=== PATIENT | male | born 1945 | race Caucasian/White ===

== ENCOUNTER 2017-02-02 07:47 | Emergency (ER) | payer MEDICARE ==
[~2017-02-02] VITALS: Ht 193 cm; Wt 113.6 kg
[2017-02-02] MEDS ORDERED: HYDR25TA PO (08:01)
[2017-02-02] MEDS ORDERED: METO50 PO (08:01)
[2017-02-02 08:42] LABS: INFLUENZA TYPE B NEGATIVE FOR TYPE B (NEGATIVE)
[2017-02-02 11:27] VITALS: BP 127/78
== END 2017-02-02 12:24 | disposition home or self-care (01) ==
LOC: EMS 07:51
DX: J06.9 Acute upper respiratory infection, unspecified (principal); J44.9 Chronic obstructive pulmonary disease, unspecified; J45.909 Unspecified asthma, uncomplicated; I10 Essential (primary) hypertension; Z87.891 Personal history of nicotine dependence
CPT/HCPCS: 71020; 87804; 99285

== ENCOUNTER 2018-05-29 21:28 | Emergency (ER) | payer MEDICARE ==
[~2018-05-29] VITALS: Ht 190.5 cm; Wt 109.1 kg
[~2018-05-29 21:28] MED LIST: HYDR25TA PO; METO50 PO
[2018-05-29] MEDS ORDERED: SERT100T12 PO (21:34)
[2018-05-29 22:45] VITALS: BP 145/82
[2018-05-29] MEDS ORDERED: KETOROLAC TROMETHAMINE 30 MG/ML VIAL IM ONE (22:45)
== END 2018-05-29 23:08 | disposition home or self-care (01) ==
LOC: EMS 21:28
DX: S22.42XA Multiple fractures of ribs, left side, initial encounter for closed fracture (principal); I10 Essential (primary) hypertension; J44.9 Chronic obstructive pulmonary disease, unspecified; Z87.891 Personal history of nicotine dependence; Z98.890 Other specified postprocedural states; Z79.899 Other long term (current) drug therapy; W10.8XXA Fall (on) (from) other stairs and steps, initial encounter; Y93.89 Activity, other specified; Y92.89 Other specified places as the place of occurrence of the external cause; Y99.8 Other external cause status
CPT/HCPCS: 71100; 96372; 99283; J1885

== ENCOUNTER 2018-06-12 19:28 | Inpatient (IN) | payer MEDICARE, MEDICAID ==
[~2018-06-12] VITALS: Ht 190.5 cm; Wt 114.3 kg
[~2018-06-12 19:28] MED LIST changes: +SERT100T12 PO
[2018-06-12 21:48] LABS: BASOPHILS % (AUTO) 0.7 % (0.0-2.0); EOSINOPHILS % (AUTO) 2.5 % (1.0-6.0); HEMATOCRIT 32.7 % (41-53); HEMOGLOBIN 11.7 g/dL (13.5-17.5); LYMPHOCYTES # (AUTO) 2.2 K/uL (1.0-4.8); LYMPHOCYTES % (AUTO) 25.5 % (22.0-44.0); MEAN CORPUSCULAR HEMOGLOBIN 31.1 pg (26.0-34.0); MEAN CORPUSCULAR HGB CONC 35.8 G/dL (31.0-37.0); MEAN CORPUSCULAR VOLUME 87 fL (80-100); MONOCYTES # (AUTO) 0.6 K/uL (0.1-1.0); NEUTROPHILS # (AUTO) 5.5 K/uL (1.8-7.7); NEUTROPHILS % (AUTO) 64.3 % (40.0-70.0); PLATELET COUNT (AUTO) 292 K/uL (150-450); RED BLOOD CELL COUNT(AUTO) 3.77 MIL/uL (4.50-5.90); RED CELL DISTRIBUTION WIDTH 13.7 % (11.5-14.5)
[2018-06-12 22:08] LABS: ANION GAP 13 mmol/L (8-16); CALCIUM, TOTAL 8.8 mg/dL (8.8-10.5); CARBON DIOXIDE 23 mmol/L (22-29); CHLORIDE 102 mmol/L (98-107); CREATININE 0.91 mg/dL (0.60-1.30); GLOMERULAR FILTR. RATE CALC > 60 mL/min (>60); GLUCOSE,RANDOM 131 mg/dL (70-110); POTASSIUM 3.6 mmol/L (3.5-5.1); SODIUM SERUM 138 mmol/L (136-145); UREA NITROGEN, BLOOD 12 mg/dL (7-18)
[2018-06-12 22:14] LABS: ALANINE AMINOTRANSFERASE 17 U/L (12-78); ALBUMIN 3.5 g/dL (3.4-5.0); ALKALINE PHOSPHATASE 137 U/L (46-116); ASPARTATE AMINOTRANSFERASE 16 U/L (15-37); BILIRUBIN,TOTAL 0.9 mg/dL (0.1-1.0); TOTAL PROTEIN, SERUM 7.1 g/dL (6.4-8.2)
[2018-06-12] MEDS ORDERED: SODIUM CHLORIDE 0.9% 100 ML ONE (23:30)
[2018-06-12] MEDS ORDERED: IOVERSOL 350 MG/ML 150 ML VIAL ONE (23:30)
[2018-06-13] MEDS ORDERED: AZITHROMYCIN 500 MG/NS 250 ML IV ONE (01:15)
[2018-06-13] MEDS ORDERED: CefTRIAXone 1 GM/DEXTROSE 50 ML IV ONE (01:15)
[2018-06-13] MEDS ORDERED: MORPHINE SULFATE 4 MG/ML SYRINGE IVP ONE (03:00)
[2018-06-13] MEDS ORDERED: DiphenhydrAMINE HCL 50 MG/ML VIAL IVP ONE (03:00)
[2018-06-13] MEDS ORDERED: ACETAMINOPHEN 325 MG TABLET PO PRN (03:30)
[2018-06-13] MEDS ORDERED: ONDANSETRON HCL 4 MG/2 ML VIAL IVP PRN (03:30)
[2018-06-13] MEDS ORDERED: 0.9% SODIUM CHLORIDE 10 ML SYRINGE IVP PRN (03:30)
[2018-06-13 05:12] VITALS: BP 159/97
[2018-06-13] MEDS ORDERED: ALBUTEROL SULFATE 2.5 MG/0.5 ML NEB SOLUTION NEB SCH (07:00)
[2018-06-13] MEDS ORDERED: IPRATROPIUM BROMIDE 0.5 MG/2.5 ML NEB SOLUTION NEB SCH (07:00)
[2018-06-13 07:47] VITALS: BP 153/79
[2018-06-13] MEDS ORDERED: MAGNESIUM HYDROXIDE SUSPENSION 30 ML UDCUP PO PRN (10:00)
[2018-06-13] MEDS: MORPHINE SULFATE 2 MG/ML SYRINGE IVP PRN ×3 (11:21→22:53)
[2018-06-13 11:35] VITALS: BP 151/95
[2018-06-13] MEDS ORDERED: LIDOCAINE/PF 1% 30 ML VIAL ONE (12:02)
[2018-06-13] MEDS: METOPROLOL TARTRATE 25 MG TABLET PO SCH ×2 (13:35→20:06)
[2018-06-13 15:35] VITALS: BP 156/71
[2018-06-13 17:59] LABS: SPECIMENTYPE,BODY FLUID THORACENTESIS
[2018-06-13 18:24] LABS: BASOPHILS,BODY FLUID 0 %; PH, BODY FLUID 7
[2018-06-13] MEDS: DOCUSATE SODIUM 100 MG CAPSULE PO SCH (20:05)
[2018-06-13 20:07] VITALS: BP 173/84
[2018-06-13] MEDS: ACETAMINOPHEN 325 MG TABLET PO PRN (20:49)
[2018-06-13] MEDS ORDERED: 0.9% SODIUM CHLORIDE 5 ML NEB SOLUTION NEB ONE (22:59)
[2018-06-13] MEDS ORDERED: BACLOFEN 10 MG TABLET PO ONE (23:00)
[2018-06-13] MEDS: ALBUTEROL SULFATE 2.5 MG/0.5 ML NEB SOLUTION NEB PRN (23:04)
[2018-06-14] MEDS ORDERED: VANCOMYCIN HCL 1.5 GM in DEXTROSE 5%-WATER 250 ML IV ONE ×2
[2018-06-14] MEDS ORDERED: SODIUM CHLORIDE 0.9% 100 ML ONE (00:08)
[2018-06-14 00:10] VITALS: BP 159/86
[2018-06-14] MEDS: MORPHINE SULFATE 2 MG/ML SYRINGE IVP PRN ×4 (04:29→20:35)
[2018-06-14] MEDS ORDERED: IPRA4AER IH (04:36)
[2018-06-14] MEDS: ACETAMINOPHEN 325 MG TABLET PO PRN (06:38)
[2018-06-14 06:46] LABS: BASOPHILS % (AUTO) 1.1 % (0.0-2.0); EOSINOPHILS % (AUTO) 3.1 % (1.0-6.0); HEMATOCRIT 31.8 % (41-53); HEMOGLOBIN 11.2 g/dL (13.5-17.5); LYMPHOCYTES # (AUTO) 1.3 K/uL (1.0-4.8); LYMPHOCYTES % (AUTO) 19.5 % (22.0-44.0); MEAN CORPUSCULAR HEMOGLOBIN 30.7 pg (26.0-34.0); MEAN CORPUSCULAR VOLUME 88 fL (80-100); MONOCYTES # (AUTO) 0.5 K/uL (0.1-1.0); MONOCYTES % (AUTO) 7.1 % (2.0-9.0); NEUTROPHILS # (AUTO) 4.6 K/uL (1.8-7.7); NEUTROPHILS % (AUTO) 69.2 % (40.0-70.0); PLATELET COUNT (AUTO) 258 K/uL (150-450); RED BLOOD CELL COUNT(AUTO) 3.64 MIL/uL (4.50-5.90)
[2018-06-14 07:02] LABS: ALANINE AMINOTRANSFERASE 13 U/L (12-78); ALBUMIN 3.2 g/dL (3.4-5.0); ALKALINE PHOSPHATASE 134 U/L (46-116); ANION GAP 11 mmol/L (8-16); ASPARTATE AMINOTRANSFERASE 12 U/L (15-37); BILIRUBIN,TOTAL 1.2 mg/dL (0.1-1.0); CALCIUM, TOTAL 8.9 mg/dL (8.8-10.5); CARBON DIOXIDE 26 mmol/L (22-29); CHLORIDE 104 mmol/L (98-107); CREATININE 0.73 mg/dL (0.60-1.30); GLUCOSE,RANDOM 128 mg/dL (70-110); POTASSIUM 3.5 mmol/L (3.5-5.1); SODIUM SERUM 141 mmol/L (136-145); TOTAL PROTEIN, SERUM 6.7 g/dL (6.4-8.2)
[2018-06-14 07:11] LABS: GLOMERULAR FILTR. RATE CALC > 60 mL/min (>60)
[2018-06-14 07:31] LABS: UREA NITROGEN, BLOOD 13 mg/dL (7-18)
[2018-06-14 07:45] VITALS: BP 156/86
[2018-06-14] MEDS: METOPROLOL TARTRATE 25 MG TABLET PO SCH ×2 (08:37→20:30)
[2018-06-14] MEDS: DOCUSATE SODIUM 100 MG CAPSULE PO SCH ×2 (08:37→20:30)
[2018-06-14] MEDS: FAMOTIDINE 20 MG TABLET PO SCH (08:37)
[2018-06-14] MEDS: VANCOMYCIN HCL 1.5 GM in DEXTROSE 5%-WATER 250 ML IV SCH ×2 (08:42→20:34)
[2018-06-14] MEDS ORDERED: POTASSIUM CHLORIDE 20 MEQ ER TABLET PO ONE (11:30)
[2018-06-14 11:41] VITALS: BP 160/81
[2018-06-14] MEDS: SERTRALINE HCL 100 MG TABLET PO SCH (12:46)
[2018-06-14] MEDS ORDERED: 0.9% SODIUM CHLORIDE 5 ML NEB SOLUTION NEB ONE ×2 (13:35→20:06)
[2018-06-14 15:32] VITALS: BP 149/84
[2018-06-14 20:03] VITALS: BP 152/71
[2018-06-14] MEDS: ALBUTEROL SULFATE 2.5 MG/0.5 ML NEB SOLUTION NEB PRN (20:15)
[2018-06-15] VITALS (7 sets, daily range): BP systolic 140–172; BP diastolic 74–103
[2018-06-15] MEDS: MORPHINE SULFATE 2 MG/ML SYRINGE IVP PRN ×3 (02:22→14:30)
[2018-06-15] MEDS ORDERED: 0.9% SODIUM CHLORIDE 5 ML NEB SOLUTION NEB ONE ×2 (02:51→16:14)
[2018-06-15] MEDS: ALBUTEROL SULFATE 2.5 MG/0.5 ML NEB SOLUTION NEB PRN ×2 (02:53→16:20)
[2018-06-15 06:28] LABS: HEMATOCRIT 31.1 % (41-53); HEMOGLOBIN 10.8 g/dL (13.5-17.5); MEAN CORPUSCULAR HEMOGLOBIN 30.6 pg (26.0-34.0); MEAN CORPUSCULAR HGB CONC 34.8 G/dL (31.0-37.0); MEAN CORPUSCULAR VOLUME 88 fL (80-100); PLATELET COUNT (AUTO) 254 K/uL (150-450); RED BLOOD CELL COUNT(AUTO) 3.54 MIL/uL (4.50-5.90); RED CELL DISTRIBUTION WIDTH 13.6 % (11.5-14.5)
[2018-06-15 06:41] LABS: ANION GAP 10 mmol/L (8-16); CALCIUM, TOTAL 8.9 mg/dL (8.8-10.5); CARBON DIOXIDE 27 mmol/L (22-29); CHLORIDE 105 mmol/L (98-107); CREATININE 0.85 mg/dL (0.60-1.30); GLUCOSE,RANDOM 172 mg/dL (70-110); POTASSIUM 3.4 mmol/L (3.5-5.1); SODIUM SERUM 142 mmol/L (136-145); UREA NITROGEN, BLOOD 14 mg/dL (7-18); VANCOMYCIN,RANDOM 14.5 mcg/mL (25.0-50.0)
[2018-06-15 06:44] LABS: GLOMERULAR FILTR. RATE CALC > 60 mL/min (>60)
[2018-06-15] MEDS: DOCUSATE SODIUM 100 MG CAPSULE PO SCH ×2 (08:13→20:21)
[2018-06-15] MEDS: FAMOTIDINE 20 MG TABLET PO SCH (08:13)
[2018-06-15] MEDS: SERTRALINE HCL 100 MG TABLET PO SCH (08:13)
[2018-06-15] MEDS: METOPROLOL TARTRATE 25 MG TABLET PO SCH ×2 (08:13→20:21)
[2018-06-15] MEDS: VANCOMYCIN HCL 1.5 GM in DEXTROSE 5%-WATER 250 ML IV SCH (09:21)
[2018-06-15 09:43] LABS: BAND NEUTROPHILS % (MANUAL) 1 % (0-5); EOSINOPHILS % (MANUAL) 2 % (1-6); LYMPHOCYTES % (MANUAL) 18 % (22-44); MONOCYTES % (MANUAL) 2 % (2-9); SEGMENTED NEUTROPHILS % 77 % (40-70)
[2018-06-15] MEDS ORDERED: POTASSIUM CHLORIDE 20 MEQ ER TABLET PO ONE (10:45)
[2018-06-15] MEDS: AmLODIPine BESYLATE 10 MG TABLET PO SCH (12:36)
[2018-06-15] MEDS: VANCOMYCIN HCL 1 GM/D5% WATER 200 ML IV SCH ×2 (14:30→23:20)
[2018-06-16] MEDS: MORPHINE SULFATE 2 MG/ML SYRINGE IVP PRN ×4 (00:35→23:02)
[2018-06-16] MEDS: ALBUTEROL SULFATE 2.5 MG/0.5 ML NEB SOLUTION NEB PRN ×4 (00:50→20:17)
[2018-06-16] MEDS ORDERED: 0.9% SODIUM CHLORIDE 5 ML NEB SOLUTION NEB ONE ×4 (00:52→20:04)
[2018-06-16] MEDS: ACETAMINOPHEN 325 MG TABLET PO PRN (03:23)
[2018-06-16 05:56] VITALS: BP 149/74
[2018-06-16 06:13] LABS: ANION GAP 10 mmol/L (8-16); CALCIUM, TOTAL 9.2 mg/dL (8.8-10.5); CARBON DIOXIDE 27 mmol/L (22-29); CHLORIDE 103 mmol/L (98-107); CREATININE 0.72 mg/dL (0.60-1.30); GLOMERULAR FILTR. RATE CALC > 60 mL/min (>60); GLUCOSE,RANDOM 130 mg/dL (70-110); POTASSIUM 3.6 mmol/L (3.5-5.1); SODIUM SERUM 140 mmol/L (136-145); UREA NITROGEN, BLOOD 15 mg/dL (7-18)
[2018-06-16] MEDS: VANCOMYCIN HCL 1 GM/D5% WATER 200 ML IV SCH ×3 (06:46→23:03)
[2018-06-16 08:16] VITALS: BP 119/73
[2018-06-16] MEDS: METOPROLOL TARTRATE 25 MG TABLET PO SCH ×2 (08:45→20:13)
[2018-06-16] MEDS: SERTRALINE HCL 100 MG TABLET PO SCH (08:45)
[2018-06-16] MEDS: FAMOTIDINE 20 MG TABLET PO SCH (08:45)
[2018-06-16] MEDS: AmLODIPine BESYLATE 10 MG TABLET PO SCH (08:45)
[2018-06-16] MEDS: DOCUSATE SODIUM 100 MG CAPSULE PO SCH ×2 (08:45→20:13)
[2018-06-16 11:50] VITALS: BP 143/79
[2018-06-16 13:51] LABS: APPEARANCE,SPUN,BODY FLUID BLOODY (CLEAR)
[2018-06-16 13:52] LABS: COLOR,BODY FLUID RED (LT YELLOW); TOTAL VOLUME,BODY FLUID 810 mL
[2018-06-16 13:55] LABS: WBC, BODY FLUID 8437 /cu. mm.
[2018-06-16 14:00] LABS: NEUTROPHILS,BODY FLUID 47 %; OTHER CELLS,BODY FLUID MESOTHELIALS
[2018-06-16 14:05] LABS: LYMPHOCYTES,BODY FLUID 31 %
[2018-06-16 14:06] LABS: EOSINOPHILS,BF (ANAL) 2 %; MONOCYTES,BODY FLUID 4 %
[2018-06-16 14:07] LABS: APPEARANCE,UNSPUN,BODY FLUID BLOODY (CLEAR)
[2018-06-16] MEDS: BACLOFEN 10 MG TABLET PO PRN ×2 (14:31→23:02)
[2018-06-16 16:00] VITALS: BP 141/59
[2018-06-16 16:53] LABS: LACTATE DEHYDROGENASE 327 U/L (85-227)
[2018-06-16 20:00] VITALS: BP 164/98
[2018-06-16] MEDS ORDERED: SODIUM CHLORIDE 0.9% 250 ML IV ONE (22:57)
[2018-06-17 00:39] VITALS: BP 151/69
[2018-06-17 04:00] VITALS: BP 145/75
[2018-06-17] MEDS: ACETAMINOPHEN 325 MG TABLET PO PRN (04:41)
[2018-06-17] MEDS ORDERED: 0.9% SODIUM CHLORIDE 5 ML NEB SOLUTION NEB ONE ×3 (05:12→23:23)
[2018-06-17] MEDS: ALBUTEROL SULFATE 2.5 MG/0.5 ML NEB SOLUTION NEB PRN ×3 (05:19→23:25)
[2018-06-17] MEDS: VANCOMYCIN HCL 1 GM/D5% WATER 200 ML IV SCH ×3 (06:41→23:00)
[2018-06-17 07:05] LABS: ANION GAP 10 mmol/L (8-16); CARBON DIOXIDE 26 mmol/L (22-29); CHLORIDE 105 mmol/L (98-107); CREATININE 0.72 mg/dL (0.60-1.30); GLUCOSE,RANDOM 132 mg/dL (70-110); POTASSIUM 3.6 mmol/L (3.5-5.1); SODIUM SERUM 141 mmol/L (136-145); UREA NITROGEN, BLOOD 15 mg/dL (7-18)
[2018-06-17 07:10] LABS: GLOMERULAR FILTR. RATE CALC > 60 mL/min (>60)
[2018-06-17] MEDS: AmLODIPine BESYLATE 10 MG TABLET PO SCH (08:12)
[2018-06-17] MEDS: DOCUSATE SODIUM 100 MG CAPSULE PO SCH ×2 (08:12→21:01)
[2018-06-17] MEDS: FAMOTIDINE 20 MG TABLET PO SCH (08:12)
[2018-06-17] MEDS: SERTRALINE HCL 100 MG TABLET PO SCH (08:12)
[2018-06-17] MEDS: METOPROLOL TARTRATE 25 MG TABLET PO SCH ×2 (08:13→21:01)
[2018-06-17 08:20] VITALS: BP 174/85
[2018-06-17] MEDS: BACLOFEN 10 MG TABLET PO PRN ×2 (09:06→21:02)
[2018-06-17 11:39] VITALS: BP 145/67
[2018-06-17] MEDS: MORPHINE SULFATE 2 MG/ML SYRINGE IVP PRN ×2 (13:09→23:10)
[2018-06-17 15:56] VITALS: BP 157/62
[2018-06-17 20:39] VITALS: BP 155/89
[2018-06-18 00:25] VITALS: BP 157/81
[2018-06-18] MEDS: MORPHINE SULFATE 2 MG/ML SYRINGE IVP PRN (04:37)
[2018-06-18 04:42] VITALS: BP 159/86
[2018-06-18 06:07] LABS: ANION GAP 11 mmol/L (8-16); CARBON DIOXIDE 26 mmol/L (22-29); CHLORIDE 102 mmol/L (98-107); CREATININE 0.74 mg/dL (0.60-1.30); GLOMERULAR FILTR. RATE CALC > 60 mL/min (>60); GLUCOSE,RANDOM 121 mg/dL (70-110); POTASSIUM 3.8 mmol/L (3.5-5.1); SODIUM SERUM 139 mmol/L (136-145); UREA NITROGEN, BLOOD 13 mg/dL (7-18)
[2018-06-18] MEDS: VANCOMYCIN HCL 1 GM/D5% WATER 200 ML IV SCH (06:18)
[2018-06-18 07:20] VITALS: BP 140/61
[2018-06-18] MEDS ORDERED: 0.9% SODIUM CHLORIDE 5 ML NEB SOLUTION NEB ONE (08:15)
[2018-06-18] MEDS: ALBUTEROL SULFATE 2.5 MG/0.5 ML NEB SOLUTION NEB PRN (08:19)
[2018-06-18] MEDS: DOCUSATE SODIUM 100 MG CAPSULE PO SCH (09:00)
[2018-06-18] MEDS: SERTRALINE HCL 100 MG TABLET PO SCH (09:04)
[2018-06-18] MEDS: AmLODIPine BESYLATE 10 MG TABLET PO SCH (09:04)
[2018-06-18] MEDS: FAMOTIDINE 20 MG TABLET PO SCH (09:04)
[2018-06-18] MEDS: METOPROLOL TARTRATE 25 MG TABLET PO SCH (09:04)
[2018-06-18] MEDS ORDERED: LEVO500 PO (11:08)
[2018-06-22 16:56] LABS: MTB NUCL.ACID AMPLIF W/O AFBCS Negative (Negative)
== END 2018-06-18 12:00 | disposition home or self-care (01) | DRG 194 ==
LOC: EMS 19:29 → 5S 06-13 01:30 → 5N 06-14 15:47
PROVIDERS: ADMIT Internal Medicine; ATTEND Internal Medicine
PROC: 0W9B3ZZ Drainage of Left Pleural Cavity, Percutaneous Approach (ICD-10-PCS; principal; 2018-06-13)
DX: J18.9 Pneumonia, unspecified organism (principal); S22.42XA Multiple fractures of ribs, left side, initial encounter for closed fracture; J44.0 Chronic obstructive pulmonary disease with (acute) lower respiratory infection; J91.8 Pleural effusion in other conditions classified elsewhere; D71 Functional disorders of polymorphonuclear neutrophils; I10 Essential (primary) hypertension; E66.9 Obesity, unspecified; E87.6 Hypokalemia; I45.10 Unspecified right bundle-branch block; T50.905A Adverse effect of unspecified drugs, medicaments and biological substances, initial encounter; R58 Hemorrhage, not elsewhere classified; L29.9 Pruritus, unspecified; Z77.090 Contact with and (suspected) exposure to asbestos; Z87.891 Personal history of nicotine dependence; Z88.5 Allergy status to narcotic agent; Z68.31 Body mass index [BMI] 31.0-31.9, adult; W18.39XA Other fall on same level, initial encounter; Y93.89 Activity, other specified; Y92.89 Other specified places as the place of occurrence of the external cause; Y99.8 Other external cause status
CPT/HCPCS: 32555; 71260; 72193; 74160; 76942; 82465; 82945; 83615; 83986; 84157; 85007; 86850; 86900; 86901; 87015; 87040; 87070; 87101; 87205; 87206; 87556; 88108; 88312; 89051; 93005; 93306; 94640; 96365; 96368; 96375; G0378; J0456; J0696; J1200; J2270; J3370; J3490; J7050; J7060

== ENCOUNTER 2018-07-18 12:19 | Emergency (ER) | payer MEDICARE, MEDICAID ==
[~2018-07-18] VITALS: Ht 190.5 cm; Wt 110.5 kg
[~2018-07-18 12:19] MED LIST changes: -HYDR25TA PO; +IPRA4AER IH; +LEVO500 PO
[2018-07-18 13:12] LABS: BASOPHILS % (AUTO) 0.9 % (0.0-2.0); EOSINOPHILS % (AUTO) 1.5 % (1.0-6.0); HEMATOCRIT 38.6 % (41-53); HEMOGLOBIN 13.3 g/dL (13.5-17.5); LYMPHOCYTES # (AUTO) 1.5 K/uL (1.0-4.8); LYMPHOCYTES % (AUTO) 19.5 % (22.0-44.0); MEAN CORPUSCULAR HGB CONC 34.4 G/dL (31.0-37.0); MEAN CORPUSCULAR VOLUME 87 fL (80-100); MONOCYTES # (AUTO) 0.6 K/uL (0.1-1.0); MONOCYTES % (AUTO) 8.3 % (2.0-9.0); NEUTROPHILS # (AUTO) 5.3 K/uL (1.8-7.7); NEUTROPHILS % (AUTO) 69.8 % (40.0-70.0); PLATELET COUNT (AUTO) 234 K/uL (150-450); RED BLOOD CELL COUNT(AUTO) 4.43 MIL/uL (4.50-5.90); RED CELL DISTRIBUTION WIDTH 13.8 % (11.5-14.5)
[2018-07-18 13:23] LABS: ANION GAP 10 mmol/L (8-16); CALCIUM, TOTAL 8.8 mg/dL (8.8-10.5); CARBON DIOXIDE 27 mmol/L (22-29); CHLORIDE 104 mmol/L (98-107); CREATININE 1.07 mg/dL (0.60-1.30); GLUCOSE,RANDOM 145 mg/dL (70-110); POTASSIUM 3.4 mmol/L (3.5-5.1); SODIUM SERUM 141 mmol/L (136-145); UREA NITROGEN, BLOOD 14 mg/dL (7-18)
[2018-07-18 13:30] LABS: ALANINE AMINOTRANSFERASE 14 U/L (12-78); ALBUMIN 3.4 g/dL (3.4-5.0); ALKALINE PHOSPHATASE 108 U/L (46-116); BILIRUBIN,TOTAL 0.9 mg/dL (0.1-1.0); LIPASE 89 U/L (73-393); TOTAL PROTEIN, SERUM 7.1 g/dL (6.4-8.2)
[2018-07-18 13:32] LABS: LACTIC ACID 0.6 mmol/L (0.4-2.0)
[2018-07-18 13:34] LABS: GLOMERULAR FILTR. RATE CALC > 60 mL/min (>60)
[2018-07-18 13:36] LABS: B-TYPE NATRIURETIC PEPTIDE 540 pg/mL (0-100)
[2018-07-18 13:55] LABS: ASPARTATE AMINOTRANSFERASE 14 U/L (15-37)
[2018-07-18 17:00] LABS: INR 0.9 (0.9-1.1); PROTHROMBIN TIME 9.9 SEC (9.4-11.6)
[2018-07-18 19:01] VITALS: BP 154/70
[2018-07-18 19:53] LABS: SPECIMENTYPE,BODY FLUID THORACENTESIS
[2018-07-18 20:59] LABS: APPEARANCE,UNSPUN,BODY FLUID CLOUDY (CLEAR); COLOR,BODY FLUID BROWN (LT YELLOW); TOTAL VOLUME,BODY FLUID 1800 mL
[2018-07-18 21:00] LABS: WBC, BODY FLUID 389 /cu. mm.
[2018-07-18 21:10] LABS: APPEARANCE,SPUN,BODY FLUID XANTHOCHROMIC (CLEAR)
[2018-07-18 21:32] LABS: BASOPHILS,BODY FLUID 0 %; EOSINOPHILS,BF (ANAL) 0 %; LYMPHOCYTES,BODY FLUID 13 %; MONOCYTES,BODY FLUID 2 %; NEUTROPHILS,BODY FLUID 85 %
[2018-07-18 21:33] LABS: PH, BODY FLUID 7
== END 2018-07-18 19:02 | disposition home or self-care (01) ==
LOC: EMS 12:20
DX: J90 Pleural effusion, not elsewhere classified (principal); R91.1 Solitary pulmonary nodule; I10 Essential (primary) hypertension; J44.9 Chronic obstructive pulmonary disease, unspecified; Z79.899 Other long term (current) drug therapy; Z87.891 Personal history of nicotine dependence; Z88.8 Allergy status to other drugs, medicaments and biological substances; Z98.890 Other specified postprocedural states
CPT/HCPCS: 32550; 36415; 71045; 71046; 71250; 76942; 80053; 82465; 82945; 83605; 83615; 83690; 83880; 83986; 84157; 84484; 85025; 85610; 85730; 87015; 87040; 87070; 87101; 87206; 88108; 89051; 93005; 99285; G0480

== ENCOUNTER → 2018-11-24 | Outpatient (CLI) | payer MEDICARE, MEDICAID ==
[~2018-11-24] MED LIST changes: +ATOR40TA28 PO; +DIPH-706 PO; +FENO160T41 PO; +HYDR25TA PO; +IPRA3AMP24 NEB; -LEVO500 PO; +LISI-662 PO
== END | disposition home or self-care (01) ==
LOC: RESP 10:09
PROVIDERS: ATTEND Internal Medicine
DX: J44.9 Chronic obstructive pulmonary disease, unspecified (principal)
CPT/HCPCS: 94010; 94726; 94727; 94729

== ENCOUNTER → 2018-12-30 | Outpatient (CLI) | payer MEDICARE, MEDICAID | END | disposition home or self-care (01) | LOC: RADPV 13:35 | PROVIDERS: ATTEND Internal Medicine | DX: J44.9 Chronic obstructive pulmonary disease, unspecified (principal); J90 Pleural effusion, not elsewhere classified ==

== ENCOUNTER 2019-04-21 09:51 | Emergency (ER) | payer MEDICARE, MEDICAID ==
[~2019-04-21] VITALS: Ht 190.5 cm; Wt 111.4 kg
[~2019-04-21 09:51] MED LIST changes: +HYDR-1475 PO; -HYDR25TA PO
[2019-04-21 11:00] VITALS: BP 148/79
[2019-04-21] MEDS ORDERED: LIDOCAINE 5% TRANSDERMAL PATCH TD ONE (11:45)
[2019-04-21] MEDS ORDERED: IBUPROFEN 400 MG TABLET PO ONE (11:45)
== END 2019-04-21 12:04 | disposition home or self-care (01) ==
LOC: EMS 09:52
DX: S22.32XA Fracture of one rib, left side, initial encounter for closed fracture (principal); I10 Essential (primary) hypertension; J44.9 Chronic obstructive pulmonary disease, unspecified; Z87.891 Personal history of nicotine dependence; Z79.899 Other long term (current) drug therapy; Z88.5 Allergy status to narcotic agent; Z98.890 Other specified postprocedural states; X50.9XXA Other and unspecified overexertion or strenuous movements or postures, initial encounter; Y93.89 Activity, other specified; Y92.89 Other specified places as the place of occurrence of the external cause; Y99.8 Other external cause status
CPT/HCPCS: 71101; 99406

== ENCOUNTER 2020-03-15 13:18 | Emergency (ER) | payer MEDICARE, MEDICAID ==
[~2020-03-15] VITALS: Ht 188 cm; Wt 109.1 kg
[2020-03-15] MEDS ORDERED: HYDROCHLOROTHIAZIDE 25 MG TABLET PO ONE (15:15)
[2020-03-15 15:49] LABS: BASOPHILS % (AUTO) 0.9 % (0.0-2.0); EOSINOPHILS % (AUTO) 2.2 % (1.0-6.0); HEMATOCRIT 40.9 % (41-53); HEMOGLOBIN 14.6 g/dL (13.5-17.5); LYMPHOCYTES # (AUTO) 1.7 K/uL (1.0-4.8); LYMPHOCYTES % (AUTO) 23.8 % (22.0-44.0); MEAN CORPUSCULAR HEMOGLOBIN 31.5 pg (26.0-34.0); MEAN CORPUSCULAR HGB CONC 35.7 G/dL (31.0-37.0); MEAN CORPUSCULAR VOLUME 88 fL (80-100); MONOCYTES # (AUTO) 0.5 K/uL (0.1-1.0); MONOCYTES % (AUTO) 7.1 % (2.0-9.0); NEUTROPHILS # (AUTO) 4.6 K/uL (1.8-7.7); PLATELET COUNT (AUTO) 198 K/uL (150-450); RED BLOOD CELL COUNT(AUTO) 4.64 MIL/uL (4.50-5.90); RED CELL DISTRIBUTION WIDTH 13.6 % (11.5-14.5)
[2020-03-15 16:19] LABS: ALBUMIN 3.8 g/dL (3.4-5.0); ALKALINE PHOSPHATASE 106 U/L (46-116); ANION GAP 11 mmol/L (8-16); BILIRUBIN,TOTAL 1.4 mg/dL (0.1-1.0); CALCIUM, TOTAL 8.4 mg/dL (8.8-10.5); CARBON DIOXIDE 28 mmol/L (22-29); CHLORIDE 110 mmol/L (98-107); GLUCOSE,RANDOM 158 mg/dL (70-110); POTASSIUM 3.7 mmol/L (3.5-5.1); SODIUM SERUM 149 mmol/L (136-145); UREA NITROGEN, BLOOD 17 mg/dL (7-18)
[2020-03-15 16:50] LABS: TOTAL PROTEIN, SERUM 7.8 g/dL (6.4-8.2)
[2020-03-15 16:51] LABS: CREATININE 0.89 mg/dL (0.60-1.30); GLOMERULAR FILTR. RATE CALC > 60 mL/min (>60)
[2020-03-15 17:33] LABS: ALANINE AMINOTRANSFERASE 24 U/L (12-78); ASPARTATE AMINOTRANSFERASE 22 U/L (15-37)
[2020-03-15 18:43] LABS: APPEARANCE,URINE CLEAR (CLEAR); BILIRUBIN,URINE NEGATIVE (NEGATIVE); GLUCOSE, URINE (UA) NEGATIVE (NEGATIVE); KETONES,URINE NEGATIVE (NEGATIVE); LEUKOCYTE ESTERASE ,URINE NEGATIVE (NEGATIVE); NITRATE,URINE NEGATIVE (NEGATIVE); OCCULT BLOOD,URINE NEGATIVE (NEGATIVE); PH,URINE 6.5 (5.0-8.0); PROTEIN,URINE TRACE (NEGATIVE); UROBILINOGEN,URINE 0.2 mg/dL (<=1.0)
[2020-03-15 18:54] LABS: BACTERIA,URINE None Seen /HPF (None Seen); RBC,URINE None Seen /HPF (0-2); WBC,URINE None Seen /HPF (0-5)
[2020-03-15 18:55] LABS: SQUAMOUS EPITHELIAL CELL,UR Rare /LPF (None Seen)
[2020-03-15 19:26] VITALS: BP 186/95
== END 2020-03-15 19:30 | disposition home or self-care (01) ==
LOC: EMS 13:22
DX: I10 Essential (primary) hypertension (principal); F17.210 Nicotine dependence, cigarettes, uncomplicated; Z91.14 Patient's other noncompliance with medication regimen
CPT/HCPCS: 93005

== ENCOUNTER 2022-01-27 09:40 | Emergency (ER) | payer MEDICARE, MEDICAID ==
[~2022-01-27] VITALS: Ht 190.5 cm; Wt 106.8 kg
[~2022-01-27 09:40] MED LIST changes: -FENO160T41 PO; +FENO160T75 PO; -HYDR-1475 PO; +HYDR25TA2 PO; -LISI-662 PO; +LISI-894 PO; +SERT-162 PO; -SERT100T12 PO
[2022-01-27 10:10] LABS: COVID AG,FIA SOURCE NASAL SWAB
[2022-01-27 10:43] LABS: INFLUENZA TYPE A NEGATIVE FOR TYPE A (NEGATIVE); INFLUENZA TYPE B NEGATIVE FOR TYPE B (NEGATIVE)
[2022-01-27] MEDS ORDERED: AMOX1TAB16 PO (11:42)
[2022-01-27] MEDS ORDERED: AZIT250T9 PO (11:42)
[2022-01-27 12:00] VITALS: BP 146/89
[2022-01-27] MEDS ORDERED: ALBU8HFA IH (12:04)
[2022-01-27] MEDS ORDERED: IPRA4AER IH (12:04)
== END 2022-01-27 12:20 | disposition home or self-care (01) ==
LOC: EMS 09:42
DX: J18.9 Pneumonia, unspecified organism (principal); Z20.822 Contact with and (suspected) exposure to COVID-19; E78.5 Hyperlipidemia, unspecified; E78.00 Pure hypercholesterolemia, unspecified; F32.9 Major depressive disorder, single episode, unspecified; J44.9 Chronic obstructive pulmonary disease, unspecified; I10 Essential (primary) hypertension; R53.81 Other malaise; Z88.5 Allergy status to narcotic agent
CPT/HCPCS: 71045; 87804; 99284

== ENCOUNTER 2023-05-13 06:38 | Inpatient (IN) | payer MEDICARE, MEDICAID ==
[~2023-05-13] VITALS: Ht 190.5 cm; Wt 116.1 kg
[~2023-05-13 06:38] MED LIST changes: +ALBU18HF12 IH; +AMOX1TAB16 PO
[2023-05-13 07:19] LABS: EOSINOPHILS % (AUTO) 4.5 % (1.0-6.0); HEMATOCRIT 30.6 % (41-53); HEMOGLOBIN 10.2 g/dL (13.5-17.5); LYMPHOCYTES # (AUTO) 0.9 K/uL (1.0-4.8); LYMPHOCYTES % (AUTO) 19.4 % (22.0-44.0); MEAN CORPUSCULAR HEMOGLOBIN 30.5 pg (26.0-34.0); MEAN CORPUSCULAR HGB CONC 33.3 G/dL (31.0-37.0); MEAN CORPUSCULAR VOLUME 91 fL (80-100); MONOCYTES # (AUTO) 0.5 K/uL (0.1-1.0); MONOCYTES % (AUTO) 11.3 % (2.0-9.0); NEUTROPHILS # (AUTO) 2.9 K/uL (1.8-7.7); NEUTROPHILS % (AUTO) 63.8 % (40.0-70.0); PLATELET COUNT (AUTO) 210 K/uL (150-450); RED BLOOD CELL COUNT(AUTO) 3.35 MIL/uL (4.50-5.90); WHITE BLOOD COUNT (AUTO) 4.5 K/uL (4.5-11.0)
[2023-05-13 07:32] LABS: LACTIC ACID 1.1 mmol/L (0.4-2.0); TROPONIN I-HIGH SENSITIVITY 33 ng/L (<76)
[2023-05-13] MEDS: DILTIAZEM HCL 5 MG/ML 5 ML VIAL IVP ONE (07:32)
[2023-05-13 07:34] LABS: ANION GAP 12 mmol/L (8-16); CALCIUM, TOTAL 9.1 mg/dL (8.8-10.5); CARBON DIOXIDE 21 mmol/L (22-29); CHLORIDE 105 mmol/L (98-107); CREATININE 2.28 mg/dL (0.60-1.30); GLOMERULAR FILTR. RATE CALC 28 mL/min (>60); GLUCOSE,RANDOM 93 mg/dL (70-110); POTASSIUM 3.7 mmol/L (3.5-5.1); SODIUM SERUM 138 mmol/L (136-145); UREA NITROGEN, BLOOD 39 mg/dL (7-18)
[2023-05-13] MEDS: MethylPREDNISolone SOD SUCC 125 MG/2 ML VIAL IVP ONE (07:36)
[2023-05-13 07:38] LABS: ALANINE AMINOTRANSFERASE 15 U/L (12-78); ALBUMIN 2.5 g/dL (3.4-5.0); ALKALINE PHOSPHATASE 142 U/L (46-116); ASPARTATE AMINOTRANSFERASE 24 U/L (15-37); BILIRUBIN,TOTAL 1.3 mg/dL (0.1-1.0); LIPASE 28 U/L (16-77); TOTAL PROTEIN, SERUM 6.5 g/dL (6.4-8.2)
[2023-05-13] MEDS: FUROSEMIDE 40 MG/4 ML VIAL IVP ONE (07:38)
[2023-05-13] MEDS: ASPIRIN 325 MG TABLET PO ONE (07:40)
[2023-05-13] MEDS: OXYGEN THERAPY IH SCH (07:43)
[2023-05-13] MEDS: DIGOXIN 250 MCG/ML 2 ML AMP IVP ONE (07:43)
[2023-05-13 07:51] LABS: B-TYPE NATRIURETIC PEPTIDE 1050 pg/mL (0-100)
[2023-05-13 08:37] LABS: APPEARANCE,URINE CLEAR (CLEAR); BILIRUBIN,URINE NEGATIVE (NEGATIVE); COLOR,URINE LIGHT YELLOW (YELLOW); GLUCOSE, URINE (UA) NEGATIVE (NEGATIVE); KETONES,URINE NEGATIVE (NEGATIVE); LEUKOCYTE ESTERASE ,URINE NEGATIVE (NEGATIVE); NITRATE,URINE NEGATIVE (NEGATIVE); OCCULT BLOOD,URINE SMALL (NEGATIVE); PROTEIN,URINE NEGATIVE (NEGATIVE); SPECIFIC GRAVITIY, URINE 1.009 (1.003-1.030); UROBILINOGEN,URINE <=1.0 mg/dL (<=1.0)
[2023-05-13 08:45] LABS: ALCOHOL, URINE DRUG SCREEN NEGATIVE (NEGATIVE); AMPHET/METH SCREEN,URINE NEGATIVE (NEGATIVE); BARBITURATE SCREEN, URINE NEGATIVE (NEGATIVE); BENZODIAZEPINES SCREEN,URINE NEGATIVE (NEGATIVE); CANNABINOID SCREEN,URINE NEGATIVE (NEGATIVE); COCAINE SCREEN,URINE NEGATIVE (NEGATIVE); METHADONE SCREEN, URINE NEGATIVE (NEGATIVE); OPIATE SCREEN,URINE NEGATIVE (NEGATIVE); PHENCYCLIDINE SCREEN,URINE NEGATIVE (NEGATIVE)
[2023-05-13 08:53] LABS: BACTERIA,URINE None Seen /HPF (None Seen); WBC,URINE None Seen /HPF (0-5)
[2023-05-13 09:17] LABS: INFLUENZA A-RTPCR,COMBO NEGATIVE (NEGATIVE); INFLUENZA B-RTPCR,COMBO NEGATIVE (NEGATIVE); RESPIRATORY SYNCYTIAL VRS-PCR NEGATIVE (NEGATIVE); SARS COVID19 RTPCR, COMBO NEGATIVE (NEGATIVE)
[2023-05-13 11:53] VITALS: BP 158/101; PULSE 120; RESP 20; TEMP 97.6
[2023-05-13] MEDS: METOPROLOL TARTRATE 50 MG TABLET PO SCH (12:28)
[2023-05-13 16:02] VITALS: BP 146/86; PULSE 100; RESP 18; TEMP 97.3
[2023-05-13] MEDS ORDERED: ONDANSETRON HCL 4 MG/2 ML VIAL IVP PRN (18:00)
[2023-05-13] MEDS ORDERED: BISACODYL 10 MG RECTAL RECTAL SUPPOSITORY PR PRN (18:00)
[2023-05-13] MEDS ORDERED: ZOLPIDEM TARTRATE 5 MG TABLET PO PRN (18:00)
[2023-05-13] MEDS ORDERED: MAGNESIUM HYDROXIDE SUSPENSION 30 ML UDCUP PO PRN (18:00)
[2023-05-13] MEDS ORDERED: ALBU18HF12 IH (18:26)
[2023-05-13] MEDS ORDERED: ASPI-1451 PO (18:26)
[2023-05-13] MEDS ORDERED: METO-408 PO (18:26)
[2023-05-13] MEDS ORDERED: SODIUM CHLORIDE 0.9% 500 ML IV ONE (19:52)
[2023-05-13 20:00] VITALS: BP 146/82; PULSE 94; RESP 18; TEMP 97.9
[2023-05-13] MEDS: ATORVASTATIN CALCIUM 40 MG TABLET PO SCH (20:01)
[2023-05-13] MEDS: CeFAZolin 1 GM/DEXTROSE 50 ML IV SCH (20:01)
[2023-05-13] MEDS: FUROSEMIDE 40 MG/4 ML VIAL IVP SCH (20:02)
[2023-05-13] MEDS: ALBUTEROL SULFATE 2.5 MG/0.5 ML NEB SOLUTION NEB SCH (21:00)
[2023-05-13] MEDS: IPRATROPIUM BROMIDE 0.5 MG/2.5 ML NEB SOLUTION NEB SCH (21:00)
[2023-05-13] MEDS: HEPARIN SODIUM,PORCINE 5,000 UNITS/ML VIAL SQ SCH (23:21)
[2023-05-13 23:25] VITALS: BP 145/84; PULSE 104; RESP 18; TEMP 97.6
[2023-05-14] VITALS (11 sets, daily range): BP systolic 111–147; BP diastolic 62–85; PULSE 64–106; RESP 18–24; TEMP 97.6–98.1; O2SAT 93–95
[2023-05-14 07:30] LABS: BASOPHILS % (AUTO) 0.2 % (0.0-2.0); EOSINOPHILS % (AUTO) 0 % (1.0-6.0); HEMATOCRIT 29.8 % (41-53); HEMOGLOBIN 10.3 g/dL (13.5-17.5); LYMPHOCYTES # (AUTO) 0.6 K/uL (1.0-4.8); LYMPHOCYTES % (AUTO) 9.1 % (22.0-44.0); MEAN CORPUSCULAR HEMOGLOBIN 31.2 pg (26.0-34.0); MEAN CORPUSCULAR HGB CONC 34.4 G/dL (31.0-37.0); MEAN CORPUSCULAR VOLUME 91 fL (80-100); MONOCYTES # (AUTO) 0.3 K/uL (0.1-1.0); NEUTROPHILS # (AUTO) 5.9 K/uL (1.8-7.7); PLATELET COUNT (AUTO) 233 K/uL (150-450); RED BLOOD CELL COUNT(AUTO) 3.29 MIL/uL (4.50-5.90); RED CELL DISTRIBUTION WIDTH 15.7 % (11.5-14.5); WHITE BLOOD COUNT (AUTO) 6.9 K/uL (4.5-11.0)
[2023-05-14 07:37] LABS: NEUTROPHILS % (AUTO) 85.7 % (40.0-70.0)
[2023-05-14 08:01] LABS: CALCIUM, TOTAL 8.7 mg/dL (8.8-10.5); CREATININE 2.28 mg/dL (0.60-1.30); POTASSIUM 3.5 mmol/L (3.5-5.1)
[2023-05-14 08:06] LABS: TROPONIN I-HIGH SENSITIVITY 21 ng/L (<76)
[2023-05-14] MEDS: FENOFIBRATE 160 MG TABLET PO SCH (08:23)
[2023-05-14] MEDS: ASPIRIN 81 MG DR TABLET PO SCH (08:24)
[2023-05-14] MEDS: SERTRALINE HCL 100 MG TABLET PO SCH (08:24)
[2023-05-14] MEDS: PANTOPRAZOLE SODIUM 40 MG DR TABLET PO SCH (08:24)
[2023-05-14 08:30] LABS: THYROID STIMULATING HORMONE 3.85 uIU/mL (0.36-3.74)
[2023-05-14] MEDS: CefTRIAXone SODIUM 2 GM in DEXTROSE 5%-WATER 50 ML IV SCH (16:05)
[2023-05-14] MEDS: DOXYCYCLINE HYCLATE 100 MG in DEXTROSE 5%-WATER 100 ML IV SCH (17:17)
[2023-05-14] MEDS: METOPROLOL SUCCINATE 50 MG ER TABLET PO SCH (21:06)
[2023-05-14] MEDS: APIXABAN 2.5 MG TABLET PO SCH (21:07)
[2023-05-15] VITALS (9 sets, daily range): BP systolic 132–159; BP diastolic 81–100; PULSE 72–110; RESP 14–20; TEMP 96.9–98.4; O2SAT 94–98
[2023-05-15 08:03] LABS: CALCIUM, TOTAL 8.6 mg/dL (8.8-10.5); CREATININE 2.04 mg/dL (0.60-1.30); MAGNESIUM 1.2 mg/dL (1.80-2.40); PHOSPHORUS 4.3 mg/dL (2.5-4.9)
[2023-05-15] MEDS ORDERED: MAGNESIUM OXIDE 400 MG TABLET PO PRN (08:30)
[2023-05-15] MEDS ORDERED: MAGNESIUM SULFATE 4 GM/WATER 100 ML IV PRN (08:30)
[2023-05-15] MEDS ORDERED: MAGNESIUM SULFATE 2 GM/WATER 50 ML IV PRN (08:30)
[2023-05-15] MEDS: POTASSIUM CHLORIDE 20 MEQ ER TABLET PO ONE (09:19)
[2023-05-15] MEDS: POTASSIUM CHL 10 MEQ/WATER 50 ML IV SCH (09:19)
[2023-05-15 09:25] LABS: ALBUMIN 2.3 g/dL (3.4-5.0)
[2023-05-15] MEDS: MAGNESIUM SULFATE 2 GM/WATER 50 ML IV ONE (15:13)
[2023-05-15 17:31] LABS: CALCIUM, TOTAL 8.5 mg/dL (8.8-10.5); CREATININE 2.07 mg/dL (0.60-1.30); MAGNESIUM 1.2 mg/dL (1.80-2.40); PHOSPHORUS 4.1 mg/dL (2.5-4.9); POTASSIUM 3.4 mmol/L (3.5-5.1)
[2023-05-15 17:36] LABS: CREATININE,URINE 12.6 mg/dL (30.0-125.0)
[2023-05-15 17:37] LABS: CREATININE,SERUM FOR CRCL 2.04 mg/dL (0.60-1.30)
[2023-05-15] MEDS: BENZOCAINE/MENTHOL LOZENGE PO PRN (20:59)
[2023-05-16] VITALS (11 sets, daily range): BP systolic 117–150; BP diastolic 68–92; PULSE 75–116; RESP 18–22; TEMP 98–98.4; O2SAT 95–96
[2023-05-16] MEDS: ACETAMINOPHEN 325 MG TABLET PO PRN (05:45)
[2023-05-16 07:11] LABS: CALCIUM, TOTAL 8.2 mg/dL (8.8-10.5); CREATININE 1.98 mg/dL (0.60-1.30); PHOSPHORUS 3.8 mg/dL (2.5-4.9); POTASSIUM 3.3 mmol/L (3.5-5.1)
[2023-05-16] MEDS: LOSARTAN POTASSIUM 25 MG TABLET PO SCH (08:22)
[2023-05-16 08:39] LABS: MAGNESIUM 1.2 mg/dL (1.80-2.40)
[2023-05-16] MEDS: POTASSIUM CHL 10 MEQ/WATER 50 ML IV SCH (11:10)
[2023-05-16] MEDS: FUROSEMIDE 40 MG TABLET PO SCH (11:17)
[2023-05-16] MEDS: MAGNESIUM SULFATE 3 GM in DEXTROSE 5%-WATER 100 ML IV ONE (16:20)
[2023-05-16] MEDS: POTASSIUM CHLORIDE 20 MEQ ER TABLET PO ONE (16:34)
[2023-05-17] VITALS (14 sets, daily range): BP systolic 104–126; BP diastolic 56–86; PULSE 79–111; RESP 16–20; TEMP 97.9–99.1; O2SAT 93–99
[2023-05-17] MEDS: ALBUTEROL SULFATE 2.5 MG/0.5 ML NEB SOLUTION NEB PRN (04:31)
[2023-05-17] MEDS: IPRATROPIUM BROMIDE 0.5 MG/2.5 ML NEB SOLUTION NEB PRN (04:31)
[2023-05-17 08:08] LABS: CALCIUM, TOTAL 7.8 mg/dL (8.8-10.5); CREATININE 1.79 mg/dL (0.60-1.30); MAGNESIUM 1.4 mg/dL (1.80-2.40); POTASSIUM 3.4 mmol/L (3.5-5.1)
[2023-05-17] MEDS: POTASSIUM CHLORIDE 20 MEQ ER TABLET PO ONE (10:42)
[2023-05-17] MEDS: MAGNESIUM SULFATE 3 GM in DEXTROSE 5%-WATER 100 ML IV ONE (12:24)
[2023-05-18] VITALS (12 sets, daily range): BP systolic 93–127; BP diastolic 54–84; PULSE 79–102; RESP 16–20; TEMP 97.8–98.2; O2SAT 96–99
[2023-05-18] MEDS: TAMSULOSIN HCL 0.4 MG CAPSULE PO SCH (17:18)
[2023-05-19] VITALS (13 sets, daily range): BP systolic 119–144; BP diastolic 60–85; PULSE 93–115; RESP 18–20; TEMP 97.7–98.7; O2SAT 93–100
[2023-05-19 07:45] LABS: CALCIUM, TOTAL 7.9 mg/dL (8.8-10.5); CREATININE 1.85 mg/dL (0.60-1.30); POTASSIUM 3.8 mmol/L (3.5-5.1)
[2023-05-19] MEDS ORDERED: TAMS0.4C94 PO (11:08)
[2023-05-19] MEDS ORDERED: APIX2.5T PO (11:08)
[2023-05-19] MEDS ORDERED: FURO40 PO (11:08)
[2023-05-19] MEDS ORDERED: FENO160T75 PO (11:08)
[2023-05-19] MEDS ORDERED: CEPACLZ PO (11:08)
[2023-05-19] MEDS ORDERED: PANT-31 PO (11:08)
[2023-05-19] MEDS ORDERED: LOSA-417 PO (11:08)
[2023-05-19] MEDS ORDERED: METO-391 PO (11:08)
[2023-05-19] MEDS ORDERED: SODIUM CHLORIDE 0.9% 500 ML IV ONE (19:32)
[2023-05-20] VITALS (13 sets, daily range): BP systolic 121–125; BP diastolic 67–85; PULSE 94–107; RESP 18–20; TEMP 97.5–99.3; O2SAT 93–100
[2023-05-20] MEDS ORDERED: SODIUM CHLORIDE 0.9% 250 ML IV ONE (01:59)
[2023-05-20] MEDS: FUROSEMIDE 40 MG TABLET PO SCH (10:25)
[2023-05-21 03:47] VITALS: BP 131/93; PULSE 89; RESP 18; TEMP 97.8
[2023-05-21 08:05] VITALS: BP 135/86; PULSE 82; RESP 20; TEMP 98.5
[2023-05-21 08:23] VITALS: PULSE 84; RESP 18; O2SAT 96
[2023-05-21 08:36] VITALS: PULSE 87; RESP 18; O2SAT 99
== END 2023-05-21 13:00 | DRG 291 ==
LOC: EMS 06:39 → 5S 10:23 → 6N 05-19 23:23
PROVIDERS: ADMIT Hospitalist; ATTEND Hospitalist
DX: I13.0 Hypertensive heart and chronic kidney disease with heart failure and stage 1 through stage 4 chronic kidney disease, or unspecified chronic kidney disease (principal); I50.23 Acute on chronic systolic (congestive) heart failure; J18.9 Pneumonia, unspecified organism; S22.42XA Multiple fractures of ribs, left side, initial encounter for closed fracture; N17.9 Acute kidney failure, unspecified; J44.0 Chronic obstructive pulmonary disease with (acute) lower respiratory infection; E87.3 Alkalosis; E44.0 Moderate protein-calorie malnutrition; I48.20 Chronic atrial fibrillation, unspecified; L03.115 Cellulitis of right lower limb; L03.116 Cellulitis of left lower limb; N18.4 Chronic kidney disease, stage 4 (severe); I42.9 Cardiomyopathy, unspecified; Z20.822 Contact with and (suspected) exposure to COVID-19; D64.9 Anemia, unspecified; R09.02 Hypoxemia; E83.42 Hypomagnesemia; E87.6 Hypokalemia; N32.0 Bladder-neck obstruction; M79.89 Other specified soft tissue disorders; F32.A Depression, unspecified; R09.89 Other specified symptoms and signs involving the circulatory and respiratory systems; R33.8 Other retention of urine; I27.20 Pulmonary hypertension, unspecified; N40.1 Benign prostatic hyperplasia with lower urinary tract symptoms; R13.10 Dysphagia, unspecified; N50.89 Other specified disorders of the male genital organs; Z79.82 Long term (current) use of aspirin; Z88.8 Allergy status to other drugs, medicaments and biological substances; Z79.899 Other long term (current) drug therapy; Z87.891 Personal history of nicotine dependence; X58.XXXA Exposure to other specified factors, initial encounter; Y93.89 Activity, other specified; Y92.89 Other specified places as the place of occurrence of the external cause; Y99.8 Other external cause status
CPT/HCPCS: 0241U; 70450; 71045; 71250; 76770; 80048; 80053; 80307; 81001; 81050; 82040; 82575; 83605; 83690; 83735; 83880; 84100; 84132; 84156; 84300; 84443; 84484; 85025; 87040; 92526; 92610; 93005; 93306; 93970; 94640; 97116; 97162; 97530; 99285; J0690; J0696; J1160; J1644; J1940; J2930; J3475; J3480; J3490; J7040; J7050; J7060; 36415-L1; 36415-TC; J7613

== ENCOUNTER 2023-08-17 17:23 | Emergency (ER) | payer MEDICARE, MEDICAID ==
[~2023-08-17] VITALS: Ht 182.9 cm; Wt 81.8 kg
[~2023-08-17 17:23] MED LIST changes: -AMOX1TAB16 PO; +APIX2.5T PO; +ASPI-1451 PO; +CEPACLZ PO; -DIPH-706 PO; +FURO40 PO; -HYDR25TA2 PO; -IPRA3AMP24 NEB; -LISI-894 PO; +LOSA-417 PO; +METO-391 PO; -METO50 PO; +PANT-31 PO; +TAMS0.4C94 PO
[2023-08-17 17:49] VITALS: TEMP 97.8
[2023-08-17 18:32] LABS: HEMATOCRIT 37.3 % (41-53); HEMOGLOBIN 12.2 g/dL (13.5-17.5); MEAN CORPUSCULAR HEMOGLOBIN 28.6 pg (26.0-34.0); MEAN CORPUSCULAR HGB CONC 32.7 G/dL (31.0-37.0); MEAN CORPUSCULAR VOLUME 87 fL (80-100); NEUTROPHILS % (AUTO) 59.7 % (40.0-70.0); PLATELET COUNT (AUTO) 220 K/uL (150-450); RED BLOOD CELL COUNT(AUTO) 4.27 MIL/uL (4.50-5.90); RED CELL DISTRIBUTION WIDTH 17.1 % (11.5-14.5); WHITE BLOOD COUNT (AUTO) 5.7 K/uL (4.5-11.0)
[2023-08-17 18:33] LABS: BASOPHILS % (AUTO) 1.1 % (0.0-2.0); EOSINOPHILS % (AUTO) 3.1 % (1.0-6.0); LYMPHOCYTES # (AUTO) 1.6 K/uL (1.0-4.8); LYMPHOCYTES % (AUTO) 27.9 % (22.0-44.0); MONOCYTES # (AUTO) 0.5 K/uL (0.1-1.0); MONOCYTES % (AUTO) 8.2 % (2.0-9.0); NEUTROPHILS # (AUTO) 3.4 K/uL (1.8-7.7)
[2023-08-17] MEDS: FUROSEMIDE 40 MG/4 ML VIAL IVP ONE (18:34)
[2023-08-17 18:39] LABS: CREATININE 1.47 mg/dL (0.60-1.30); POTASSIUM 3.6 mmol/L (3.5-5.1)
[2023-08-17 18:49] LABS: TROPONIN I-HIGH SENSITIVITY 16 ng/L (<76)
[2023-08-17 22:29] VITALS: BP 133/87; PULSE 89; RESP 18
== END 2023-08-18 02:29 | disposition home or self-care (01) ==
LOC: EMS 17:23
DX: R60.0 Localized edema (principal); I11.0 Hypertensive heart disease with heart failure; I50.9 Heart failure, unspecified; J44.9 Chronic obstructive pulmonary disease, unspecified; F17.210 Nicotine dependence, cigarettes, uncomplicated; Z88.5 Allergy status to narcotic agent
CPT/HCPCS: 99284; 96374; 80048; 83880; 84484; 85025; 36415; 93005; J1940

== ENCOUNTER 2023-09-12 14:06 | Emergency (ER) | payer MEDICARE, MEDICAID ==
[~2023-09-12] VITALS: Ht 190.5 cm; Wt 95.5 kg
[~2023-09-12 14:06] MED LIST changes: -ALBU18HF12 IH; -APIX2.5T PO; -ASPI-1451 PO; -ATOR40TA28 PO; -CEPACLZ PO; -FENO160T75 PO; -IPRA4AER IH; -LOSA-417 PO; -METO-391 PO; -PANT-31 PO; -SERT-162 PO; -TAMS0.4C94 PO
[2023-09-12 16:14] LABS: BASOPHILS % (AUTO) 0.6 % (0.0-2.0); EOSINOPHILS % (AUTO) 2.5 % (1.0-6.0); HEMATOCRIT 35.1 % (41-53); HEMOGLOBIN 11.3 g/dL (13.5-17.5); LYMPHOCYTES # (AUTO) 1.3 K/uL (1.0-4.8); LYMPHOCYTES % (AUTO) 26.2 % (22.0-44.0); MEAN CORPUSCULAR HGB CONC 32.1 G/dL (31.0-37.0); MEAN CORPUSCULAR VOLUME 87 fL (80-100); MONOCYTES # (AUTO) 0.6 K/uL (0.1-1.0); MONOCYTES % (AUTO) 12.2 % (2.0-9.0); NEUTROPHILS # (AUTO) 2.9 K/uL (1.8-7.7); NEUTROPHILS % (AUTO) 58.5 % (40.0-70.0); PLATELET COUNT (AUTO) 147 K/uL (150-450); RED BLOOD CELL COUNT(AUTO) 4.02 MIL/uL (4.50-5.90); RED CELL DISTRIBUTION WIDTH 16.9 % (11.5-14.5)
[2023-09-12 16:24] LABS: CALCIUM, TOTAL 8.6 mg/dL (8.8-10.5); CREATININE 1.23 mg/dL (0.60-1.30); POTASSIUM 3.3 mmol/L (3.5-5.1)
[2023-09-12 16:33] LABS: TROPONIN I-HIGH SENSITIVITY 13 ng/L (<76)
[2023-09-12] MEDS: KETOROLAC TROMETHAMINE 60 MG/2 ML VIAL IM ONE (16:34)
[2023-09-12 17:13] LABS: APPEARANCE,URINE HAZY (CLEAR); BILIRUBIN,URINE NEGATIVE (NEGATIVE); COLOR,URINE LIGHT YELLOW (YELLOW); GLUCOSE, URINE (UA) NEGATIVE (NEGATIVE); KETONES,URINE NEGATIVE (NEGATIVE); LEUKOCYTE ESTERASE ,URINE LARGE (NEGATIVE); NITRATE,URINE NEGATIVE (NEGATIVE); OCCULT BLOOD,URINE MODERATE (NEGATIVE); PROTEIN,URINE 100-200,SEE CONFIRM mg/dL (NEGATIVE); SPECIFIC GRAVITIY, URINE 1.012 (1.003-1.030); UROBILINOGEN,URINE <=1.0 mg/dL (<=1.0)
[2023-09-12 17:46] LABS: BACTERIA,URINE Few /HPF (None Seen); SQUAMOUS EPITHELIAL CELL,UR None Seen /LPF (None Seen); SULFOSALICYLIC ACID,URINE 1+ (Negative); WBC,URINE 26-50 /HPF (0-5)
[2023-09-12] MEDS ORDERED: METO-325 PO (19:05)
[2023-09-12] MEDS ORDERED: APIX2.5T PO (19:05)
[2023-09-12] MEDS ORDERED: TAMS0.4C94 PO (19:05)
[2023-09-12] MEDS ORDERED: LOSA-381 PO (19:05)
[2023-09-12] MEDS ORDERED: POTA8TAB71 PO (19:05)
[2023-09-12] MEDS ORDERED: CIPR250T6 PO (19:05)
[2023-09-12] MEDS ORDERED: FURO40 PO (19:05)
[2023-09-12] MEDS: POTASSIUM CHLORIDE 20 MEQ ER TABLET PO ONE (19:40)
[2023-09-12 20:30] VITALS: BP 134/77; PULSE 75; RESP 18; TEMP 98.3
== END 2023-09-12 22:26 | disposition home or self-care (01) ==
LOC: EMS 14:08
DX: N32.0 Bladder-neck obstruction (principal); E44.0 Moderate protein-calorie malnutrition; E87.6 Hypokalemia; N39.0 Urinary tract infection, site not specified; J45.909 Unspecified asthma, uncomplicated; J44.9 Chronic obstructive pulmonary disease, unspecified; F32.A Depression, unspecified; E78.00 Pure hypercholesterolemia, unspecified; I11.0 Hypertensive heart disease with heart failure; I50.9 Heart failure, unspecified; F17.210 Nicotine dependence, cigarettes, uncomplicated; F10.90 Alcohol use, unspecified, uncomplicated; Z91.148 Patient's other noncompliance with medication regimen for other reason; Z91.119 Patient's noncompliance with dietary regimen due to unspecified reason; Z98.890 Other specified postprocedural states; Y90.9 Presence of alcohol in blood, level not specified
CPT/HCPCS: 99284; 80048; 81001; 84484; 85025; 36415; 87086; 87186; 51702; 96372; J1885; 81002

== ENCOUNTER 2023-10-15 12:12 | Emergency (ER) | payer MEDICARE, MEDICAID ==
[~2023-10-15] VITALS: Ht 185.4 cm; Wt 77.3 kg
[~2023-10-15 12:12] MED LIST changes: +APIX2.5T PO; +CIPR250T6 PO; +LOSA-381 PO; +METO-325 PO; +POTA8TAB71 PO; +TAMS0.4C94 PO
[2023-10-15 12:19] VITALS: TEMP 97.9
[2023-10-15] MEDS: KETOROLAC TROMETHAMINE 30 MG/ML VIAL IM ONE (16:49)
[2023-10-15 17:12] VITALS: BP 160/106; PULSE 89; RESP 18
== END 2023-10-15 17:20 | disposition home or self-care (01) ==
LOC: EMS 12:12
DX: R33.9 Retention of urine, unspecified (principal); J44.9 Chronic obstructive pulmonary disease, unspecified; F32.A Depression, unspecified; E78.00 Pure hypercholesterolemia, unspecified; I11.0 Hypertensive heart disease with heart failure; I50.9 Heart failure, unspecified; F10.90 Alcohol use, unspecified, uncomplicated; Z87.891 Personal history of nicotine dependence; Z88.8 Allergy status to other drugs, medicaments and biological substances; Y90.9 Presence of alcohol in blood, level not specified
CPT/HCPCS: 99283; 96372; J1885

== ENCOUNTER 2023-12-27 12:11 | Emergency (ER) | payer MEDICARE, MEDICAID ==
[~2023-12-27] VITALS: Ht 190.5 cm; Wt 81.0 kg
[~2023-12-27 12:11] MED LIST changes: -FURO40 PO; +FURO40TA6 PO; +PERM60CR4 TP
[2023-12-27 12:26] VITALS: TEMP 98.3
[2023-12-27 12:44] LABS: APPEARANCE,URINE CLEAR (CLEAR); BILIRUBIN,URINE NEGATIVE (NEGATIVE); COLOR,URINE COLORLESS (YELLOW); GLUCOSE, URINE (UA) NEGATIVE (NEGATIVE); KETONES,URINE NEGATIVE (NEGATIVE); LEUKOCYTE ESTERASE ,URINE MODERATE (NEGATIVE); NITRATE,URINE NEGATIVE (NEGATIVE); OCCULT BLOOD,URINE NEGATIVE (NEGATIVE); PROTEIN,URINE NEGATIVE (NEGATIVE); SPECIFIC GRAVITIY, URINE 1.007 (1.003-1.030); UROBILINOGEN,URINE <=1.0 mg/dL (<=1.0)
[2023-12-27] MEDS: KETOROLAC TROMETHAMINE 30 MG/ML VIAL IM ONE (13:00)
[2023-12-27 13:02] LABS: BACTERIA,URINE Few /HPF (None Seen); RBC,URINE None Seen /HPF (0-2); SQUAMOUS EPITHELIAL CELL,UR Few /LPF (None Seen)
[2023-12-27] MEDS ORDERED: LEVO750T68 PO (13:17)
[2023-12-27] MEDS: LEVOFLOXACIN 250 MG TABLET PO ONE (13:32)
[2023-12-27 13:50] VITALS: BP 132/69; PULSE 77; RESP 16; O2SAT 98
== END 2023-12-27 13:51 | disposition home or self-care (01) ==
LOC: EMS 12:11
DX: N39.0 Urinary tract infection, site not specified (principal); J44.9 Chronic obstructive pulmonary disease, unspecified; E78.00 Pure hypercholesterolemia, unspecified; I10 Essential (primary) hypertension; Z98.890 Other specified postprocedural states; Z88.5 Allergy status to narcotic agent
CPT/HCPCS: 99283; 81001; 87077; 87086; 87186; 96372; J1885

== ENCOUNTER 2024-04-16 13:33 | Emergency (ER) | payer MEDICARE, MEDICAID ==
[~2024-04-16 13:33] MED LIST changes: +LEVO750T68 PO
== END 2024-04-16 13:50 | disposition left against medical advice (07) ==
LOC: EMS 13:38
DX: Z53.21 Procedure and treatment not carried out due to patient leaving prior to being seen by health care provider (principal)

== ENCOUNTER 2024-07-14 21:31 | Inpatient (IN) | payer MEDICARE, MEDICAID ==
[~2024-07-14] VITALS: Ht 188 cm; Wt 88.9 kg
[~2024-07-14 21:31] MED LIST changes: +ALBU18HF12 IH; -APIX2.5T PO; +APIX5TAB PO; -CIPR250T6 PO; +FURO20TA4 PO; -FURO40TA6 PO; +HYDR-4527 PO; -LEVO750T68 PO; -LOSA-381 PO; +LOSA-417 PO; -METO-325 PO; +METO-391 PO; -PERM60CR4 TP; -POTA8TAB71 PO; +SERT-440 PO; +SPIR-37 PO
[2024-07-15 01:29] LABS: BASOPHILS % (AUTO) 1.2 % (0.0-2.0); HEMATOCRIT 38.2 % (41-53); HEMOGLOBIN 12.8 g/dL (13.5-17.5); LYMPHOCYTES # (AUTO) 1.2 K/uL (1.0-4.8); LYMPHOCYTES % (AUTO) 25.3 % (22.0-44.0); MEAN CORPUSCULAR HGB CONC 33.6 G/dL (31.0-37.0); MEAN CORPUSCULAR VOLUME 86 fL (80-100); MONOCYTES # (AUTO) 0.4 K/uL (0.1-1.0); NEUTROPHILS % (AUTO) 61.5 % (40.0-70.0); PLATELET COUNT (AUTO) 127 K/uL (150-450); RED BLOOD CELL COUNT(AUTO) 4.42 MIL/uL (4.50-5.90); RED CELL DISTRIBUTION WIDTH 15.4 % (11.5-14.5); WHITE BLOOD COUNT (AUTO) 4.8 K/uL (4.5-11.0)
[2024-07-15 01:37] LABS: ANION GAP 4 mmol/L (8-16); CALCIUM, TOTAL 8.7 mg/dL (8.8-10.5); CARBON DIOXIDE 32 mmol/L (22-29); CHLORIDE 102 mmol/L (98-107); CREATININE 1.05 mg/dL (0.60-1.30); GLOMERULAR FILTR. RATE CALC > 60 mL/min (>60); GLUCOSE,RANDOM 96 mg/dL (70-110); POTASSIUM 3.9 mmol/L (3.5-5.1); SODIUM SERUM 138 mmol/L (136-145); UREA NITROGEN, BLOOD 18 mg/dL (7-18)
[2024-07-15] MEDS: LIDOCAINE 2% 6 ML JELLY TP ONE (05:39)
[2024-07-15 05:42] LABS: COVID AG,FIA SOURCE NASAL SWAB
[2024-07-15] MEDS ORDERED: METOPROLOL SUCCINATE 50 MG ER TABLET PO ONE (05:45)
[2024-07-15 06:13] LABS: SARS-COV2 (COVID) ANTIGEN,FIA Negative (Negative)
[2024-07-15] MEDS: METOPROLOL SUCCINATE 25 MG ER TABLET PO ONE (06:36)
[2024-07-15] MEDS ORDERED: ACETAMINOPHEN 325 MG TABLET PO PRN (08:30)
[2024-07-15] MEDS ORDERED: MAGNESIUM HYDROXIDE SUSPENSION 30 ML UDCUP PO PRN (08:30)
[2024-07-15] MEDS ORDERED: ONDANSETRON HCL 4 MG/2 ML VIAL IVP PRN (08:30)
[2024-07-15 09:02] LABS: APPEARANCE,URINE HAZY (CLEAR); BILIRUBIN,URINE NEGATIVE (NEGATIVE); COLOR,URINE LIGHT YELLOW (YELLOW); GLUCOSE, URINE (UA) NEGATIVE (NEGATIVE); KETONES,URINE NEGATIVE (NEGATIVE); LEUKOCYTE ESTERASE ,URINE LARGE (NEGATIVE); NITRATE,URINE POSITIVE (NEGATIVE); OCCULT BLOOD,URINE TRACE (NEGATIVE); PROTEIN,URINE 100-200,SEE CONFIRM mg/dL (NEGATIVE); SPECIFIC GRAVITIY, URINE 1.007 (1.003-1.030); UROBILINOGEN,URINE <=1.0 mg/dL (<=1.0)
[2024-07-15 09:09] LABS: AMPHET/METH SCREEN,URINE NEGATIVE (NEGATIVE); BARBITURATE SCREEN, URINE NEGATIVE (NEGATIVE); BENZODIAZEPINES SCREEN,URINE NEGATIVE (NEGATIVE); CANNABINOID SCREEN,URINE NEGATIVE (NEGATIVE); COCAINE SCREEN,URINE NEGATIVE (NEGATIVE); METHADONE SCREEN, URINE NEGATIVE (NEGATIVE); OPIATE SCREEN,URINE NEGATIVE (NEGATIVE); PHENCYCLIDINE SCREEN,URINE NEGATIVE (NEGATIVE)
[2024-07-15 09:14] LABS: ALCOHOL, URINE DRUG SCREEN NEGATIVE (NEGATIVE); BACTERIA,URINE Moderate /HPF (None Seen); RBC,URINE 0-2 /HPF (0-2); SULFOSALICYLIC ACID,URINE 2+ (Negative)
[2024-07-15] MEDS: FAMOTIDINE 20 MG TABLET PO SCH (10:16)
[2024-07-15] MEDS: APIXABAN 5 MG TABLET PO SCH (10:17)
[2024-07-15] MEDS: SPIRONOLACTONE 25 MG TABLET PO SCH (10:17)
[2024-07-15] MEDS: METOPROLOL SUCCINATE 25 MG ER TABLET PO SCH (10:17)
[2024-07-15] MEDS: FUROSEMIDE 20 MG TABLET PO SCH (10:17)
[2024-07-15] MEDS: DOCUSATE SODIUM 100 MG CAPSULE PO SCH (10:17)
[2024-07-15] MEDS: lisinopriL 10 MG TABLET PO SCH (10:17)
[2024-07-15 17:45] VITALS: BP 152/102; PULSE 80; RESP 17; TEMP 98.4; O2SAT 99
[2024-07-15 20:13] VITALS: BP 155/94; PULSE 90; RESP 18; TEMP 97.5; O2SAT 99
[2024-07-15] MEDS: ATORVASTATIN CALCIUM 20 MG TABLET PO SCH (20:32)
[2024-07-15] MEDS: TAMSULOSIN HCL 0.4 MG CAPSULE PO SCH (20:35)
[2024-07-15] MEDS ORDERED: 0.9% SODIUM CHLORIDE 5 ML NEB SOLUTION NEB ONE (21:31)
[2024-07-15 21:34] VITALS: PULSE 88; RESP 18; O2SAT 99
[2024-07-15] MEDS: ALBUTEROL SULFATE 2.5 MG/0.5 ML NEB SOLUTION NEB PRN (21:34)
[2024-07-15 21:49] VITALS: PULSE 81; RESP 18; O2SAT 100
[2024-07-16] VITALS (7 sets, daily range): BP systolic 134–159; BP diastolic 87–107; PULSE 67–100; RESP 18–19; TEMP 97.5–98.5; O2SAT 95–99
[2024-07-16] MEDS ORDERED: SODIUM CHLORIDE 0.9% 500 ML IV ONE (12:44)
[2024-07-16] MEDS: SERTRALINE HCL 50 MG TABLET PO SCH (12:59)
[2024-07-16] MEDS: CefTRIAXone 1 GM/DEXTROSE 50 ML IV SCH (13:00)
[2024-07-16] MEDS ORDERED: 0.9% SODIUM CHLORIDE 5 ML NEB SOLUTION NEB ONE (19:50)
[2024-07-17] VITALS: BP 150/95; PULSE 85; RESP 19; TEMP 98.1; O2SAT 96
[2024-07-17 08:02] VITALS: BP 148/89; PULSE 80; RESP 19; TEMP 98.5; O2SAT 98
[2024-07-17 10:30] VITALS: PULSE 74; RESP 16; O2SAT 97
[2024-07-17 12:17] VITALS: BP 142/83; PULSE 86; RESP 19; TEMP 97.8; O2SAT 100
[2024-07-17 16:01] VITALS: BP 144/107; PULSE 76; RESP 19; TEMP 98; O2SAT 100
[2024-07-17 19:34] VITALS: BP 140/86; PULSE 76; RESP 18; TEMP 97.5; O2SAT 97
[2024-07-18] VITALS (10 sets, daily range): BP systolic 144–171; BP diastolic 81–104; PULSE 65–90; RESP 18–20; TEMP 97.9–98.4; O2SAT 96–99
[2024-07-18] MEDS ORDERED: CIPR250T6 PO (10:48)
[2024-07-18] MEDS: CIPROFLOXACIN HCL 250 MG TABLET PO SCH (12:00)
[2024-07-18] MEDS: CloNIDine HCL 0.1 MG TABLET PO PRN (21:09)
[2024-07-19] VITALS (7 sets, daily range): BP systolic 120–158; BP diastolic 72–99; PULSE 63–100; RESP 18–20; TEMP 97.7–98.2; O2SAT 95–100
[2024-07-20 05:38] VITALS: BP 146/83; PULSE 75; RESP 18; TEMP 97.5; O2SAT 98
[2024-07-20 07:16] VITALS: BP 107/67; PULSE 66; RESP 18; TEMP 97.9; O2SAT 95
[2024-07-20 09:37] LABS: EOSINOPHILS % (AUTO) 5.4 % (1.0-6.0); HEMATOCRIT 37.2 % (41-53); HEMOGLOBIN 12.5 g/dL (13.5-17.5); LYMPHOCYTES # (AUTO) 1.1 K/uL (1.0-4.8); LYMPHOCYTES % (AUTO) 26.9 % (22.0-44.0); MEAN CORPUSCULAR HEMOGLOBIN 29.3 pg (26.0-34.0); MEAN CORPUSCULAR HGB CONC 33.6 G/dL (31.0-37.0); MEAN CORPUSCULAR VOLUME 87 fL (80-100); MONOCYTES # (AUTO) 0.4 K/uL (0.1-1.0); NEUTROPHILS # (AUTO) 2.3 K/uL (1.8-7.7); NEUTROPHILS % (AUTO) 55.7 % (40.0-70.0); PLATELET COUNT (AUTO) 150 K/uL (150-450); RED BLOOD CELL COUNT(AUTO) 4.25 MIL/uL (4.50-5.90); RED CELL DISTRIBUTION WIDTH 16.3 % (11.5-14.5); WHITE BLOOD COUNT (AUTO) 4.1 K/uL (4.5-11.0)
[2024-07-20 09:45] LABS: CALCIUM, TOTAL 8.6 mg/dL (8.8-10.5); CREATININE 1.24 mg/dL (0.60-1.30); POTASSIUM 3.8 mmol/L (3.5-5.1)
[2024-07-20 15:10] VITALS: BP 120/72; PULSE 76; RESP 18; TEMP 98.2; O2SAT 96
[2024-07-20 19:13] VITALS: BP 151/92; PULSE 66; RESP 19; TEMP 98.4; O2SAT 97
[2024-07-21 04:29] VITALS: BP 125/78; PULSE 76; RESP 20; TEMP 98.1; O2SAT 98
[2024-07-21 07:00] VITALS: BP 109/61; PULSE 74; RESP 19; TEMP 97.8; O2SAT 100
[2024-07-21 14:59] VITALS: BP 145/89; PULSE 79; RESP 18; TEMP 98; O2SAT 98
== END 2024-07-21 19:15 | disposition home or self-care (01) | DRG 699 ==
LOC: EMS 21:31 → EDH 07-15 08:41 → UNDOADMIN 07-15 08:41 → 5S 07-15 17:30 → 6S 07-19 16:52
PROVIDERS: ADMIT Internal Medicine; ATTEND Internal Medicine
DX: T83.518A Infection and inflammatory reaction due to other urinary catheter, initial encounter (principal); F33.2 Major depressive disorder, recurrent severe without psychotic features; I50.22 Chronic systolic (congestive) heart failure; R45.851 Suicidal ideations; N39.0 Urinary tract infection, site not specified; Z59.00 Homelessness unspecified; I16.0 Hypertensive urgency; I11.0 Hypertensive heart disease with heart failure; N40.1 Benign prostatic hyperplasia with lower urinary tract symptoms; R33.8 Other retention of urine; I48.0 Paroxysmal atrial fibrillation; I07.1 Rheumatic tricuspid insufficiency; I71.21 Aneurysm of the ascending aorta, without rupture; Z20.822 Contact with and (suspected) exposure to COVID-19; I71.23 Aneurysm of the descending thoracic aorta, without rupture; R41.89 Other symptoms and signs involving cognitive functions and awareness; F41.9 Anxiety disorder, unspecified; J45.909 Unspecified asthma, uncomplicated; Y73.8 Miscellaneous gastroenterology and urology devices associated with adverse incidents, not elsewhere classified; Z88.5 Allergy status to narcotic agent; Z79.899 Other long term (current) drug therapy; Y92.89 Other specified places as the place of occurrence of the external cause
CPT/HCPCS: 80048; 80307; 81001; 81002; 85025; 87077; 87081; 87086; 87186; 93005; 94640; 97163; 99285; G0480; J0696; J7040

== ENCOUNTER 2024-08-02 04:26 | Emergency (ER) | payer MEDICARE, MEDICAID ==
[~2024-08-02] VITALS: Ht 182.9 cm; Wt 95.5 kg
[~2024-08-02 04:26] MED LIST changes: -HYDR-4527 PO
[2024-08-02 04:31] VITALS: BP 142/87; PULSE 82; RESP 16; TEMP 97.8; O2SAT 97
[2024-08-03] MEDS ORDERED: SERT-158 PO (15:54)
== END 2024-08-02 06:18 | disposition home or self-care (01) ==
LOC: EMS 04:49
DX: R41.0 Disorientation, unspecified (principal); F03.90 Unspecified dementia, unspecified severity, without behavioral disturbance, psychotic disturbance, mood disturbance, and anxiety; I11.0 Hypertensive heart disease with heart failure; I50.9 Heart failure, unspecified; J45.909 Unspecified asthma, uncomplicated; I48.91 Unspecified atrial fibrillation; N40.0 Benign prostatic hyperplasia without lower urinary tract symptoms; Z79.01 Long term (current) use of anticoagulants; Z88.5 Allergy status to narcotic agent; Z96.0 Presence of urogenital implants; Z60.2 Problems related to living alone; Z79.899 Other long term (current) drug therapy
CPT/HCPCS: 99283; Z7502

== ENCOUNTER 2024-08-03 05:25 | Inpatient (IN) | payer MEDICARE, MEDICAID ==
[~2024-08-03] VITALS: Ht 188 cm; Wt 81.8 kg
[2024-08-03 07:03] LABS: BASOPHILS % (AUTO) 0.9 % (0.0-2.0); EOSINOPHILS % (AUTO) 1.6 % (1.0-6.0); HEMATOCRIT 40.1 % (41-53); HEMOGLOBIN 13.7 g/dL (13.5-17.5); LYMPHOCYTES # (AUTO) 1.1 K/uL (1.0-4.8); LYMPHOCYTES % (AUTO) 21.7 % (22.0-44.0); MEAN CORPUSCULAR HEMOGLOBIN 29.5 pg (26.0-34.0); MEAN CORPUSCULAR HGB CONC 34.1 G/dL (31.0-37.0); MEAN CORPUSCULAR VOLUME 87 fL (80-100); MONOCYTES # (AUTO) 0.5 K/uL (0.1-1.0); NEUTROPHILS # (AUTO) 3.4 K/uL (1.8-7.7); NEUTROPHILS % (AUTO) 66.8 % (40.0-70.0); PLATELET COUNT (AUTO) 151 K/uL (150-450); RED BLOOD CELL COUNT(AUTO) 4.63 MIL/uL (4.50-5.90); RED CELL DISTRIBUTION WIDTH 16.2 % (11.5-14.5); WHITE BLOOD COUNT (AUTO) 5.1 K/uL (4.5-11.0)
[2024-08-03 07:09] LABS: ANION GAP 5 mmol/L (8-16); CALCIUM, TOTAL 9.2 mg/dL (8.8-10.5); CARBON DIOXIDE 31 mmol/L (22-29); CHLORIDE 104 mmol/L (98-107); CREATININE 1.08 mg/dL (0.60-1.30); GLOMERULAR FILTR. RATE CALC > 60 mL/min (>60); GLUCOSE,RANDOM 107 mg/dL (70-110); POTASSIUM 4.7 mmol/L (3.5-5.1); SODIUM SERUM 140 mmol/L (136-145); UREA NITROGEN, BLOOD 24 mg/dL (7-18)
[2024-08-03 07:16] LABS: ALBUMIN 3.4 g/dL (3.4-5.0); BILIRUBIN,DIRECT 0.3 mg/dL (0.00-0.20); BILIRUBIN,TOTAL 1.3 mg/dL (0.1-1.0); PROTHROMBIN TIME 10.7 SEC (9.4-11.6); TOTAL PROTEIN, SERUM 7.2 g/dL (6.4-8.2)
[2024-08-03 07:19] LABS: TROPONIN I-HIGH SENSITIVITY 18 ng/L (<76)
[2024-08-03 07:40] LABS: APPEARANCE,URINE HAZY (CLEAR); BILIRUBIN,URINE NEGATIVE (NEGATIVE); COLOR,URINE YELLOW (YELLOW); GLUCOSE, URINE (UA) NEGATIVE (NEGATIVE); KETONES,URINE NEGATIVE (NEGATIVE); LEUKOCYTE ESTERASE ,URINE LARGE (NEGATIVE); NITRATE,URINE POSITIVE (NEGATIVE); OCCULT BLOOD,URINE SMALL (NEGATIVE); PROTEIN,URINE 100-200,SEE CONFIRM mg/dL (NEGATIVE); SPECIFIC GRAVITIY, URINE 1.016 (1.003-1.030); UROBILINOGEN,URINE <=1.0 mg/dL (<=1.0)
[2024-08-03 07:50] LABS: SULFOSALICYLIC ACID,URINE 2+ (Negative)
[2024-08-03 07:51] LABS: BACTERIA,URINE Many /HPF (None Seen); WBC,URINE 26-50 /HPF (0-5)
[2024-08-03] MEDS: CefTRIAXone 1 GM/DEXTROSE 50 ML IV ONE (09:25)
[2024-08-03] MEDS: LABETALOL HCL 5 MG/ML 20 ML VIAL IVP ONE (09:25)
[2024-08-03 09:32] LABS: LACTIC ACID 0.6 mmol/L (0.4-2.0)
[2024-08-03] MEDS: CefTRIAXone 1 GM/DEXTROSE 50 ML IV SCH (10:30)
[2024-08-03] MEDS ORDERED: ALBUTEROL SULFATE 2.5 MG/0.5 ML NEB SOLUTION NEB PRN (10:30)
[2024-08-03] MEDS ORDERED: IPRATROPIUM BROMIDE 0.5 MG/2.5 ML NEB SOLUTION NEB PRN (10:30)
[2024-08-03] MEDS: LOSARTAN POTASSIUM 25 MG TABLET PO SCH (10:33)
[2024-08-03] MEDS: AZITHROMYCIN 500 MG/NS 250 ML IV SCH (10:34)
[2024-08-03] MEDS: MethylPREDNISolone SOD SUCC 125 MG/2 ML VIAL IVP SCH (11:14)
[2024-08-03 11:17] VITALS: PULSE 116; RESP 20; O2SAT 97
[2024-08-03 11:32] VITALS: PULSE 124; RESP 26; O2SAT 100
[2024-08-03] MEDS: ALBUTEROL SULFATE 2.5 MG/0.5 ML NEB SOLUTION NEB SCH (14:17)
[2024-08-03] MEDS: IPRATROPIUM BROMIDE 0.5 MG/2.5 ML NEB SOLUTION NEB SCH (14:17)
[2024-08-03 15:10] VITALS: BP 170/98; PULSE 132; RESP 20; TEMP 98.6; O2SAT 94
[2024-08-03] MEDS ORDERED: SERT-158 PO (15:54)
[2024-08-03] MEDS: BENZONATATE 100 MG CAPSULE PO SCH (17:34)
[2024-08-03 20:00] VITALS: BP 155/96; PULSE 101; RESP 19; TEMP 97.9; O2SAT 98
[2024-08-03] MEDS: TAMSULOSIN HCL 0.4 MG CAPSULE PO SCH (21:21)
[2024-08-03] MEDS: APIXABAN 5 MG TABLET PO SCH (21:21)
[2024-08-03] MEDS: GuaiFENesin SR 600 MG ER TABLET PO SCH (21:21)
[2024-08-03] MEDS: FUROSEMIDE 20 MG TABLET PO SCH (21:21)
[2024-08-04] VITALS (12 sets, daily range): BP systolic 131–158; BP diastolic 75–97; PULSE 57–99; RESP 16–22; TEMP 97.5–98.4; O2SAT 95–99
[2024-08-04 06:51] LABS: ANION GAP 10 mmol/L (8-16); CALCIUM, TOTAL 8.5 mg/dL (8.8-10.5); CARBON DIOXIDE 26 mmol/L (22-29); CHLORIDE 102 mmol/L (98-107); GLOMERULAR FILTR. RATE CALC > 60 mL/min (>60); GLUCOSE,RANDOM 263 mg/dL (70-110); POTASSIUM 3.9 mmol/L (3.5-5.1); SODIUM SERUM 138 mmol/L (136-145); UREA NITROGEN, BLOOD 26 mg/dL (7-18)
[2024-08-04 06:52] LABS: EOSINOPHILS % (AUTO) 0 % (1.0-6.0); HEMATOCRIT 38.4 % (41-53); LYMPHOCYTES # (AUTO) 0.5 K/uL (1.0-4.8); LYMPHOCYTES % (AUTO) 7.7 % (22.0-44.0); MEAN CORPUSCULAR HEMOGLOBIN 29.4 pg (26.0-34.0); MEAN CORPUSCULAR HGB CONC 33.9 G/dL (31.0-37.0); MEAN CORPUSCULAR VOLUME 87 fL (80-100); MONOCYTES # (AUTO) 0.1 K/uL (0.1-1.0); NEUTROPHILS # (AUTO) 5.8 K/uL (1.8-7.7); PLATELET COUNT (AUTO) 145 K/uL (150-450); RED BLOOD CELL COUNT(AUTO) 4.43 MIL/uL (4.50-5.90); RED CELL DISTRIBUTION WIDTH 15.6 % (11.5-14.5); WHITE BLOOD COUNT (AUTO) 6.3 K/uL (4.5-11.0)
[2024-08-04 06:59] LABS: NEUTROPHILS % (AUTO) 91.3 % (40.0-70.0)
[2024-08-04] MEDS: METOPROLOL SUCCINATE 50 MG ER TABLET PO SCH (10:02)
[2024-08-04] MEDS: SERTRALINE HCL 100 MG TABLET PO SCH (10:03)
[2024-08-04] MEDS: SPIRONOLACTONE 25 MG TABLET PO SCH (10:03)
[2024-08-04] MEDS ORDERED: SODIUM CHLORIDE 0.9% 1,000 ML ONE (11:31)
[2024-08-05] VITALS (10 sets, daily range): BP systolic 140–169; BP diastolic 80–106; PULSE 80–110; RESP 18–22; TEMP 97.5–98.2; O2SAT 96–100
[2024-08-05 06:33] LABS: HEMATOCRIT 39.5 % (41-53); HEMOGLOBIN 13.1 g/dL (13.5-17.5); MEAN CORPUSCULAR HEMOGLOBIN 28.9 pg (26.0-34.0); MEAN CORPUSCULAR HGB CONC 33.2 G/dL (31.0-37.0); MEAN CORPUSCULAR VOLUME 87 fL (80-100); PLATELET COUNT (AUTO) 148 K/uL (150-450); RED BLOOD CELL COUNT(AUTO) 4.53 MIL/uL (4.50-5.90); RED CELL DISTRIBUTION WIDTH 16.1 % (11.5-14.5); WHITE BLOOD COUNT (AUTO) 12.1 K/uL (4.5-11.0)
[2024-08-05 06:40] LABS: ANION GAP 10 mmol/L (8-16); CALCIUM, TOTAL 9.1 mg/dL (8.8-10.5); CARBON DIOXIDE 25 mmol/L (22-29); CHLORIDE 99 mmol/L (98-107); CREATININE 1.11 mg/dL (0.60-1.30); GLOMERULAR FILTR. RATE CALC > 60 mL/min (>60); GLUCOSE,RANDOM 171 mg/dL (70-110); SODIUM SERUM 134 mmol/L (136-145); UREA NITROGEN, BLOOD 32 mg/dL (7-18)
[2024-08-05 07:58] LABS: BAND NEUTROPHILS % (MANUAL) 2 % (0-5); LYMPHOCYTES % (MANUAL) 2 % (22-44); MONOCYTES % (MANUAL) 1 % (2-9); SEGMENTED NEUTROPHILS % 95 % (40-70); TOTAL CELLS COUNTED 100
[2024-08-05] MEDS: VANCOMYCIN 1GM/WATER(PEG/NADA) 200 ML IV ONE (16:57)
[2024-08-05] MEDS: levoFLOXacin 750 MG TABLET PO ONE (16:59)
[2024-08-05] MEDS ORDERED: HydrALAZINE HCL 20 MG/ML VIAL IVP PRN (17:00)
[2024-08-05] MEDS: LOSARTAN POTASSIUM 50 MG TABLET PO ONE (17:02)
[2024-08-06] VITALS (7 sets, daily range): BP systolic 140–153; BP diastolic 78–89; PULSE 78–97; RESP 18–20; TEMP 97.7–97.9; O2SAT 95–99
[2024-08-06 06:23] LABS: BASOPHILS % (AUTO) 0.1 % (0.0-2.0); EOSINOPHILS % (AUTO) 0 % (1.0-6.0); HEMATOCRIT 39.3 % (41-53); HEMOGLOBIN 13.4 g/dL (13.5-17.5); LYMPHOCYTES # (AUTO) 0.4 K/uL (1.0-4.8); LYMPHOCYTES % (AUTO) 4.4 % (22.0-44.0); MEAN CORPUSCULAR HEMOGLOBIN 29.8 pg (26.0-34.0); MEAN CORPUSCULAR HGB CONC 34.1 G/dL (31.0-37.0); MEAN CORPUSCULAR VOLUME 88 fL (80-100); MONOCYTES # (AUTO) 0.2 K/uL (0.1-1.0); MONOCYTES % (AUTO) 1.9 % (2.0-9.0); NEUTROPHILS # (AUTO) 8.8 K/uL (1.8-7.7); PLATELET COUNT (AUTO) 131 K/uL (150-450); RED BLOOD CELL COUNT(AUTO) 4.49 MIL/uL (4.50-5.90); RED CELL DISTRIBUTION WIDTH 16.4 % (11.5-14.5); WHITE BLOOD COUNT (AUTO) 9.4 K/uL (4.5-11.0)
[2024-08-06 06:35] LABS: ANION GAP 7 mmol/L (8-16); CALCIUM, TOTAL 9.1 mg/dL (8.8-10.5); CARBON DIOXIDE 28 mmol/L (22-29); CHLORIDE 101 mmol/L (98-107); CREATININE 1.09 mg/dL (0.60-1.30); GLOMERULAR FILTR. RATE CALC > 60 mL/min (>60); GLUCOSE,RANDOM 166 mg/dL (70-110); POTASSIUM 4.2 mmol/L (3.5-5.1); SODIUM SERUM 136 mmol/L (136-145); UREA NITROGEN, BLOOD 36 mg/dL (7-18)
[2024-08-06 07:02] LABS: NEUTROPHILS % (AUTO) 93.6 % (40.0-70.0)
[2024-08-06] MEDS: VANCOMYCIN 750 MG/WATER(PEG) 150 ML IV SCH (08:16)
[2024-08-06] MEDS: LOSARTAN POTASSIUM 50 MG TABLET PO SCH (08:17)
[2024-08-06] MEDS: levoFLOXacin 750 MG TABLET PO SCH (08:18)
[2024-08-06] MEDS ORDERED: LEVO750T68 PO (15:39)
[2024-08-06] MEDS ORDERED: BENZ-227 PO (15:39)
[2024-08-06] MEDS ORDERED: SERT-440 PO (15:39)
[2024-08-06] MEDS ORDERED: PRED-729 PO (15:39)
[2024-08-06] MEDS ORDERED: GUAIF600 PO (15:39)
== END 2024-08-06 20:10 | disposition home or self-care (01) | DRG 202 ==
LOC: EMS 05:27 → EDH 10:20 → 5N 14:45 → 6S 08-06 11:13
PROVIDERS: ADMIT Internal Medicine; ATTEND Internal Medicine
DX: J45.901 Unspecified asthma with (acute) exacerbation (principal); I48.20 Chronic atrial fibrillation, unspecified; N39.0 Urinary tract infection, site not specified; R78.81 Bacteremia; Z59.00 Homelessness unspecified; I11.0 Hypertensive heart disease with heart failure; I50.9 Heart failure, unspecified; N40.1 Benign prostatic hyperplasia with lower urinary tract symptoms; D69.6 Thrombocytopenia, unspecified; I16.0 Hypertensive urgency; B96.20 Unspecified Escherichia coli [E. coli] as the cause of diseases classified elsewhere; Z79.01 Long term (current) use of anticoagulants; Z88.5 Allergy status to narcotic agent
CPT/HCPCS: 71045; 80048; 80076; 81001; 81002; 82550; 83605; 83880; 84145; 84484; 85025; 85610; 85730; 87040; 87077; 87081; 87086; 87186; 87205; 93005; 94640; 96365; 96367; 96375; 99285; J0456; J0696; J2919; J3490; J7030; 36415-L1; 36415-TC; J7613

== ENCOUNTER 2024-08-20 13:35 | Emergency (ER) | payer MEDICARE, MEDICAID ==
[~2024-08-20] VITALS: Ht 188 cm; Wt 81.8 kg
[~2024-08-20 13:35] MED LIST changes: +BENZ-227 PO; +GUAIF600 PO; +LEVO750T68 PO; -LOSA-417 PO; +PRED-729 PO
[2024-08-20 13:50] VITALS: BP 160/100; PULSE 98; RESP 18; TEMP 98.5; O2SAT 98
[2024-08-20] MEDS ORDERED: ATOR40TA71 PO (13:52)
[2024-08-20] MEDS ORDERED: LOSA-381 PO (13:52)
[2024-08-20] MEDS ORDERED: METO-408 PO (13:52)
[2024-08-20] MEDS ORDERED: NITR-104 PO (13:52)
[2024-08-20] MEDS: KETOROLAC TROMETHAMINE 30 MG/ML VIAL IM ONE (16:32)
== END 2024-08-20 16:59 | disposition home or self-care (01) ==
LOC: EMS 13:35
DX: T83.038A Leakage of other urinary catheter, initial encounter (principal); I11.0 Hypertensive heart disease with heart failure; I50.9 Heart failure, unspecified; J45.909 Unspecified asthma, uncomplicated; I48.91 Unspecified atrial fibrillation; F03.90 Unspecified dementia, unspecified severity, without behavioral disturbance, psychotic disturbance, mood disturbance, and anxiety; Z88.5 Allergy status to narcotic agent; Z79.899 Other long term (current) drug therapy; Y84.6 Urinary catheterization as the cause of abnormal reaction of the patient, or of later complication, without mention of misadventure at the time of the procedure
CPT/HCPCS: 99283; 96372; J1885

== ENCOUNTER 2024-09-11 10:48 | Inpatient (IN) | payer MEDICARE, MEDICAID ==
[~2024-09-11] VITALS: Ht 188 cm; Wt 86.2 kg
[~2024-09-11 10:48] MED LIST changes: -ALBU18HF12 IH; -APIX5TAB PO; +ASPI-1450 PO; +ATOR40TA71 PO; -BENZ-227 PO; +CLOP75TA83 PO; -FURO20TA4 PO; -GUAIF600 PO; -LEVO750T68 PO; +LOSA-381 PO; -METO-391 PO; +METO-408 PO; +NITR-104 PO; -PRED-729 PO; -SPIR-37 PO; -TAMS0.4C94 PO
[2024-09-11 11:25] LABS: PLATELET COUNT (AUTO) 158 K/uL (150-450); RED BLOOD CELL COUNT(AUTO) 4.53 MIL/uL (4.50-5.90); RED CELL DISTRIBUTION WIDTH 15.9 % (11.5-14.5); WHITE BLOOD COUNT (AUTO) 5.1 K/uL (4.5-11.0)
[2024-09-11] MEDS: CLINDAMYCIN 600 MG/D5% WATER 50 ML IV ONE (11:25)
[2024-09-11 11:30] LABS: CALCIUM, TOTAL 8.9 mg/dL (8.8-10.5); CREATININE 0.94 mg/dL (0.60-1.30); GLOMERULAR FILTR. RATE CALC > 60 mL/min (>60); GLUCOSE,RANDOM 116 mg/dL (70-110); SODIUM SERUM 140 mmol/L (136-145); UREA NITROGEN, BLOOD 19 mg/dL (7-18)
[2024-09-11 11:39] LABS: TROPONIN I-HIGH SENSITIVITY 44 ng/L (<76)
[2024-09-11 11:42] LABS: ASPARTATE AMINOTRANSFERASE 22 U/L (15-37); CREATINE KINASE, TOTAL ONLY 33 U/L (39-308); TOTAL PROTEIN, SERUM 7.0 g/dL (6.4-8.2)
[2024-09-11 11:55] LABS: LACTIC ACID 0.8 mmol/L (0.4-2.0)
[2024-09-11] MEDS: AZITHROMYCIN 500 MG/NS 250 ML IV ONE (12:41)
[2024-09-11] MEDS: CefTRIAXone 1 GM/DEXTROSE 50 ML IV ONE (12:42)
[2024-09-11] MEDS: VANCOMYCIN 1.75GM/WATER(PEG) 350 ML IV ONE (14:14)
[2024-09-11 14:38] LABS: APPEARANCE,URINE CLEAR (CLEAR); GLUCOSE, URINE (UA) NEGATIVE (NEGATIVE); LEUKOCYTE ESTERASE ,URINE TRACE (NEGATIVE); NITRATE,URINE NEGATIVE (NEGATIVE); OCCULT BLOOD,URINE NEGATIVE (NEGATIVE); SPECIFIC GRAVITIY, URINE 1.022 (1.003-1.030)
[2024-09-11 14:43] LABS: SULFOSALICYLIC ACID,URINE 2+ (Negative)
[2024-09-11] MEDS: HEPARIN SODIUM,PORCINE 5,000 UNITS/ML VIAL SQ SCH (16:47)
[2024-09-11 17:15] VITALS: BP 164/127
[2024-09-11 17:20] VITALS: BP 167/97
[2024-09-11 17:30] VITALS: BP 174/120; PULSE 95; RESP 18; TEMP 98.1; O2SAT 98
[2024-09-11] MEDS: TERAZOSIN HCL 2 MG CAPSULE PO ONE (18:27)
[2024-09-11] MEDS: DOCUSATE SODIUM 100 MG CAPSULE PO SCH (20:24)
[2024-09-11 20:45] VITALS: BP 134/86; PULSE 73; RESP 18; TEMP 97.3; O2SAT 95
[2024-09-11] MEDS: IPRATROPIUM BROMIDE 0.5 MG/2.5 ML NEB SOLUTION NEB PRN (21:09)
[2024-09-11] MEDS: ALBUTEROL SULFATE 2.5 MG/0.5 ML NEB SOLUTION NEB PRN (21:09)
[2024-09-11 21:15] VITALS: PULSE 101; RESP 20; O2SAT 95
[2024-09-11] MEDS: PIPERACILLIN SODIUM/TAZOBACTAM 4.5 GM in DEXTROSE 5%-WATER 100 ML IV SCH (22:05)
[2024-09-11] MEDS ORDERED: SODIUM CHLORIDE 0.9% 500 ML IV ONE (22:09)
[2024-09-12 04:57] VITALS: PULSE 100; RESP 20; O2SAT 95
[2024-09-12 05:40] VITALS: BP 116/68; PULSE 83; RESP 18; TEMP 97.3; O2SAT 98
[2024-09-12] MEDS: ATORVASTATIN CALCIUM 40 MG TABLET PO SCH (07:58)
[2024-09-12] MEDS: VANCOMYCIN 1.75GM/WATER(PEG) 350 ML IV SCH (07:58)
[2024-09-12] MEDS: CLOPIDOGREL BISULFATE 75 MG TABLET PO SCH (07:59)
[2024-09-12] MEDS: ASPIRIN 81 MG CHEWABLE TABLET PO SCH (07:59)
[2024-09-12] MEDS: LOSARTAN POTASSIUM 25 MG TABLET PO SCH (07:59)
[2024-09-12] MEDS: SERTRALINE HCL 100 MG TABLET PO SCH (07:59)
[2024-09-12 08:19] LABS: PLATELET COUNT (AUTO) 168 K/uL (150-450); RED BLOOD CELL COUNT(AUTO) 4.58 MIL/uL (4.50-5.90); RED CELL DISTRIBUTION WIDTH 15.7 % (11.5-14.5); WHITE BLOOD COUNT (AUTO) 6.0 K/uL (4.5-11.0)
[2024-09-12 08:30] LABS: CALCIUM, TOTAL 9.0 mg/dL (8.8-10.5); CREATININE 1.29 mg/dL (0.60-1.30); GLOMERULAR FILTR. RATE CALC 54.0 mL/min (>60); GLUCOSE,RANDOM 238.0 mg/dL (70-110); SODIUM SERUM 136.0 mmol/L (136-145); UREA NITROGEN, BLOOD 19.0 mg/dL (7-18)
[2024-09-12 08:38] VITALS: BP 114/73; PULSE 74; RESP 18; TEMP 97.3; O2SAT 98
[2024-09-12 19:50] VITALS: BP 157/95; PULSE 95; RESP 20; TEMP 97.7; O2SAT 95
[2024-09-12 19:58] VITALS: PULSE 74; RESP 20; O2SAT 96
[2024-09-12] MEDS: FUROSEMIDE 20 MG/2 ML VIAL IVP SCH (20:06)
[2024-09-12 20:13] VITALS: PULSE 84; RESP 20; O2SAT 99
[2024-09-12] MEDS: ACETAMINOPHEN 325 MG TABLET PO PRN (21:18)
[2024-09-12] MEDS: NEOMYCIN/BACITRACIN/POLYMYXIN B 30 GM OINTMENT TP SCH (21:19)
[2024-09-12] MEDS: DiphenhydrAMINE/ZINC ACET 30 GM CREAM TP SCH (21:20)
[2024-09-13 05:00] VITALS: BP 149/88; PULSE 95; RESP 19; TEMP 98.3; O2SAT 96
[2024-09-13 08:31] VITALS: BP 141/104; PULSE 96; RESP 18; TEMP 97.5; O2SAT 98
[2024-09-13 10:25] LABS: CALCIUM, TOTAL 8.8 mg/dL (8.8-10.5); CREATININE 1.09 mg/dL (0.60-1.30); GLOMERULAR FILTR. RATE CALC > 60 mL/min (>60); GLUCOSE,RANDOM 233 mg/dL (70-110); SODIUM SERUM 140 mmol/L (136-145); UREA NITROGEN, BLOOD 19 mg/dL (7-18)
[2024-09-13] MEDS ORDERED: SODIUM CHLORIDE 0.9% 500 ML IV ONE (15:34)
[2024-09-13 15:48] VITALS: BP 150/91; PULSE 99; RESP 18; TEMP 97.5; O2SAT 98
[2024-09-13 19:33] VITALS: BP 152/86; PULSE 92; RESP 18; TEMP 98.2; O2SAT 95
[2024-09-14] VITALS (8 sets, daily range): BP systolic 118–157; BP diastolic 73–85; PULSE 61–92; RESP 18–20; TEMP 97.2–98.1; O2SAT 94–99
[2024-09-14 01:07] LABS: HEPATITIS C AB (EIA) Non Reactive (Non Reactive)
[2024-09-14] MEDS ORDERED: DEXTROSE 50%-WATER 25 GM/50 ML SYRINGE IVP PRN (06:00)
[2024-09-14 06:33] LABS: PLATELET COUNT (AUTO) 204 K/uL (150-450); RED BLOOD CELL COUNT(AUTO) 4.73 MIL/uL (4.50-5.90); RED CELL DISTRIBUTION WIDTH 15.7 % (11.5-14.5); WHITE BLOOD COUNT (AUTO) 12.2 K/uL (4.5-11.0)
[2024-09-14 07:02] LABS: CALCIUM, TOTAL 9.3 mg/dL (8.8-10.5); CREATININE 1.18 mg/dL (0.60-1.30); GLOMERULAR FILTR. RATE CALC 59.0 mL/min (>60); GLUCOSE,RANDOM 128.0 mg/dL (70-110); SODIUM SERUM 143.0 mmol/L (136-145); UREA NITROGEN, BLOOD 20.0 mg/dL (7-18)
[2024-09-14] MEDS: ONDANSETRON HCL 4 MG/2 ML VIAL IVP PRN (10:51)
[2024-09-14 12:21] LABS: GLUCOMETER DEV NAME(LOC) 6N.2C; GLUCOSE,POINT OF CARE 123 MG/DL (70-110)
[2024-09-15] VITALS (7 sets, daily range): BP systolic 146–154; BP diastolic 89–91; PULSE 56–85; RESP 18–20; TEMP 97.7–98.4; O2SAT 95–100
[2024-09-15 05:36] LABS: GLUCOMETER DEV NAME(LOC) 6S.2; GLUCOSE,POINT OF CARE 138 MG/DL (70-110)
[2024-09-15 06:55] LABS: GLUCOMETER DEV NAME(LOC) 6N.2C; GLUCOSE,POINT OF CARE 139 MG/DL (70-110)
[2024-09-15] MEDS ORDERED: CARV12 PO (10:45)
[2024-09-15] MEDS ORDERED: PRED-554 PO (10:45)
[2024-09-15] MEDS ORDERED: FURO20TA5 PO (10:45)
[2024-09-15] MEDS ORDERED: LEVO-72 PO (10:50)
[2024-09-15] MEDS ORDERED: ALBU18HF12 IH (10:50)
[2024-09-15 17:16] LABS: GLUCOMETER DEV NAME(LOC) 6N.2C; GLUCOSE,POINT OF CARE 134 MG/DL (70-110)
[2024-09-15 18:36] LABS: GLUCOMETER DEV NAME(LOC) 6S.1D; GLUCOSE,POINT OF CARE 123 MG/DL (70-110)
[2024-09-16 05:40] VITALS: BP 157/95; PULSE 72; RESP 20; TEMP 97.9; O2SAT 96
[2024-09-16 07:38] VITALS: BP 111/57; PULSE 69; RESP 18; TEMP 97.7; O2SAT 95
[2024-09-16 08:36] LABS: GLUCOMETER DEV NAME(LOC) 6S.2; GLUCOSE,POINT OF CARE 112 MG/DL (70-110)
[2024-09-16 08:40] LABS: GLUCOMETER DEV NAME(LOC) 6S.1D; GLUCOSE,POINT OF CARE 101 MG/DL (70-110)
[2024-09-16 12:50] VITALS: PULSE 86; RESP 20; O2SAT 96
[2024-09-16 13:08] VITALS: PULSE 86; RESP 20; O2SAT 99
[2024-09-16 15:33] VITALS: BP 138/103; PULSE 77; RESP 20; TEMP 98.2; O2SAT 97
[2024-09-16 19:58] VITALS: BP 116/66; PULSE 83; RESP 18; TEMP 98.4; O2SAT 97
[2024-09-16 22:00] LABS: GLUCOMETER DEV NAME(LOC) 6N.2C; GLUCOSE,POINT OF CARE 136 MG/DL (70-110)
[2024-09-17 00:56] VITALS: PULSE 88; RESP 20; O2SAT 97
[2024-09-17 05:04] VITALS: BP 144/72; PULSE 62; RESP 18; TEMP 97.9; O2SAT 96
[2024-09-17] MEDS: INSULIN LISPRO 100 UNITS/ML SQ PRN (06:01)
[2024-09-17 07:46] LABS: GLUCOMETER DEV NAME(LOC) 6N.2C; GLUCOSE,POINT OF CARE 154 MG/DL (70-110)
[2024-09-17 08:08] VITALS: BP 118/80; PULSE 83; RESP 18; TEMP 97.8; O2SAT 97
[2024-09-17 11:36] LABS: GLUCOMETER DEV NAME(LOC) 6S.2; GLUCOSE,POINT OF CARE 127 MG/DL (70-110)
== END 2024-09-17 14:45 | disposition home health service (06) | DRG 177 ==
LOC: EMS 11:26 → EDH 13:10 → UNDOADMIN 13:33 → EDH 13:33 → 6S 17:19
PROVIDERS: ADMIT Internal Medicine; ATTEND Internal Medicine
DX: J15.69 Pneumonia due to other Gram-negative bacteria (principal); I50.33 Acute on chronic diastolic (congestive) heart failure; L03.116 Cellulitis of left lower limb; J45.901 Unspecified asthma with (acute) exacerbation; I11.0 Hypertensive heart disease with heart failure; I48.91 Unspecified atrial fibrillation; I27.20 Pulmonary hypertension, unspecified; N40.0 Benign prostatic hyperplasia without lower urinary tract symptoms; I87.2 Venous insufficiency (chronic) (peripheral); Z79.899 Other long term (current) drug therapy; Z88.5 Allergy status to narcotic agent; Z79.02 Long term (current) use of antithrombotics/antiplatelets; Z79.82 Long term (current) use of aspirin
CPT/HCPCS: 71045; 71250; 80048; 80076; 81001; 81002; 82271; 82550; 82962; 83036; 83605; 83735; 83880; 84484; 85025; 85610; 85730; 86803; 87040; 87081; 87340; 93005; 94640; 97116; 97162; 97530; 99285; J0456; J0696; J1200; J1644; J1938; J2405; J2543; J2919; J3490; J7040; J7060; 36415-L1; 36415-TC; J7613

== ENCOUNTER 2024-11-04 19:25 | Inpatient (IN) | payer MEDICARE, MEDICAID ==
[~2024-11-04] VITALS: Ht 190.5 cm; Wt 85.9 kg
[~2024-11-04 19:25] MED LIST changes: +ALBU18HF12 IH; +CARV12 PO; +FURO20TA4 PO; -LOSA-381 PO; +LOSA-417 PO; -METO-408 PO; -NITR-104 PO
[2024-11-04] MEDS ORDERED: 0.9% SODIUM CHLORIDE 10 ML SYRINGE IVP PRN ×2 (21:45→22:15)
[2024-11-04] MEDS ORDERED: SODIUM CHLORIDE 0.9% 1,650 ML IV ONE (22:15)
[2024-11-04 22:17] LABS: PLATELET COUNT (AUTO) 157 K/uL (150-450); RED BLOOD CELL COUNT(AUTO) 4.41 MIL/uL (4.50-5.90); RED CELL DISTRIBUTION WIDTH 15.5 % (11.5-14.5); WHITE BLOOD COUNT (AUTO) 7.0 K/uL (4.5-11.0)
[2024-11-04 22:24] LABS: CALCIUM, TOTAL 8.6 mg/dL (8.8-10.5); CREATININE 0.99 mg/dL (0.60-1.30); GLOMERULAR FILTR. RATE CALC > 60 mL/min (>60); GLUCOSE,RANDOM 102 mg/dL (70-110); SODIUM SERUM 141 mmol/L (136-145); UREA NITROGEN, BLOOD 19 mg/dL (7-18)
[2024-11-04 22:28] LABS: TROPONIN I-HIGH SENSITIVITY 19 ng/L (<76)
[2024-11-04 22:34] LABS: LACTIC ACID 0.7 mmol/L (0.4-2.0)
[2024-11-04 22:54] LABS: APPEARANCE,URINE CLEAR (CLEAR); GLUCOSE, URINE (UA) NEGATIVE (NEGATIVE); LEUKOCYTE ESTERASE ,URINE MODERATE (NEGATIVE); NITRATE,URINE NEGATIVE (NEGATIVE); OCCULT BLOOD,URINE TRACE (NEGATIVE); SPECIFIC GRAVITIY, URINE 1.019 (1.003-1.030)
[2024-11-04] MEDS: ACETAMINOPHEN 500 MG TABLET PO ONE (22:57)
[2024-11-04 23:03] LABS: SQUAMOUS EPITHELIAL CELL,UR Few /LPF (None Seen); SULFOSALICYLIC ACID,URINE 1+ (Negative); YEAST,URINE Moderate /HPF (None Seen)
[2024-11-04] MEDS: VANCOMYCIN 1.5 GM/WATER(PEG) 300 ML IV ONE (23:57)
[2024-11-05] VITALS (9 sets, daily range): BP systolic 101–165; BP diastolic 60–95; PULSE 64–90; RESP 18–19; TEMP 97.3–97.9; O2SAT 96–98
[2024-11-05] MEDS: HEPARIN SODIUM,PORCINE 5,000 UNITS/ML VIAL SQ SCH (00:20)
[2024-11-05] MEDS: VANCOMYCIN 1GM/WATER(PEG/NADA) 200 ML IV SCH (08:56)
[2024-11-05] MEDS: ASPIRIN 81 MG CHEWABLE TABLET PO SCH (08:57)
[2024-11-05] MEDS: FAMOTIDINE 20 MG TABLET PO SCH (08:57)
[2024-11-05] MEDS: DOCUSATE SODIUM 100 MG CAPSULE PO SCH (08:58)
[2024-11-05] MEDS: ALBUTEROL SULFATE 2.5 MG/0.5 ML NEB SOLUTION NEB PRN (21:59)
[2024-11-06] VITALS (8 sets, daily range): BP systolic 129–161; BP diastolic 72–98; PULSE 63–78; RESP 16–20; TEMP 97.3–97.9; O2SAT 98–100
[2024-11-06 06:58] LABS: CALCIUM, TOTAL 8.6 mg/dL (8.8-10.5); CREATININE 0.99 mg/dL (0.60-1.30); GLOMERULAR FILTR. RATE CALC > 60 mL/min (>60); GLUCOSE,RANDOM 118 mg/dL (70-110); SODIUM SERUM 138 mmol/L (136-145); UREA NITROGEN, BLOOD 20 mg/dL (7-18)
[2024-11-06] MEDS: SERTRALINE HCL 100 MG TABLET PO SCH (13:45)
[2024-11-06] MEDS: ACETAMINOPHEN 325 MG TABLET PO PRN (20:41)
[2024-11-07 00:12] VITALS: BP 123/63; PULSE 60; RESP 18; TEMP 97.3; O2SAT 96
[2024-11-07 03:54] VITALS: BP 138/71; PULSE 65; RESP 18; TEMP 97.3; O2SAT 96
[2024-11-07 06:03] LABS: CALCIUM, TOTAL 8.1 mg/dL (8.8-10.5); CREATININE 0.96 mg/dL (0.60-1.30); GLOMERULAR FILTR. RATE CALC > 60 mL/min (>60); GLUCOSE,RANDOM 109 mg/dL (70-110); SODIUM SERUM 139 mmol/L (136-145); UREA NITROGEN, BLOOD 21 mg/dL (7-18)
[2024-11-07 08:08] VITALS: BP 140/91; PULSE 66; RESP 20; TEMP 98.7; O2SAT 98
[2024-11-07] MEDS ORDERED: CLIN300C58 PO (10:49)
[2024-11-07 12:15] VITALS: BP 100/57; PULSE 72; RESP 19; TEMP 97.5; O2SAT 97
[2024-11-07] MEDS: FUROSEMIDE 20 MG TABLET PO SCH (12:16)
[2024-11-07 16:11] VITALS: BP 135/72; PULSE 64; RESP 19; TEMP 97; O2SAT 98
== END 2024-11-07 17:50 | disposition home or self-care (01) | DRG 603 ==
LOC: EMS 19:25 → EDH 11-05 00:24 → 5N 11-05 01:06
PROVIDERS: ADMIT Internal Medicine; ATTEND Internal Medicine
DX: L03.116 Cellulitis of left lower limb (principal); I48.20 Chronic atrial fibrillation, unspecified; I50.32 Chronic diastolic (congestive) heart failure; F03.90 Unspecified dementia, unspecified severity, without behavioral disturbance, psychotic disturbance, mood disturbance, and anxiety; N40.1 Benign prostatic hyperplasia with lower urinary tract symptoms; R33.8 Other retention of urine; I11.0 Hypertensive heart disease with heart failure; J45.909 Unspecified asthma, uncomplicated; Z88.5 Allergy status to narcotic agent; Z79.899 Other long term (current) drug therapy; Z79.82 Long term (current) use of aspirin; Z79.02 Long term (current) use of antithrombotics/antiplatelets
CPT/HCPCS: 71045; 80048; 80202; 81001; 81002; 83605; 83880; 84145; 84484; 85025; 85610; 87040; 87077; 87086; 93005; 93971; 94640; 96374; 99285; J0360; J1644; 36415-L1; 36415-TC; J7613

== ENCOUNTER 2024-12-27 09:47 | Inpatient (IN) | payer MEDICARE, MEDICAID ==
[~2024-12-27] VITALS: Ht 190.5 cm; Wt 89.1 kg
[~2024-12-27 09:47] MED LIST changes: +CLIN300C58 PO
[2024-12-27 10:24] LABS: PLATELET COUNT (AUTO) 133 K/uL (150-450); RED BLOOD CELL COUNT(AUTO) 4.59 MIL/uL (4.50-5.90); RED CELL DISTRIBUTION WIDTH 13.4 % (11.5-14.5); WHITE BLOOD COUNT (AUTO) 4.1 K/uL (4.5-11.0)
[2024-12-27 10:30] LABS: CALCIUM, TOTAL 8.5 mg/dL (8.8-10.5); CREATININE 0.96 mg/dL (0.60-1.30); GLOMERULAR FILTR. RATE CALC > 60 mL/min (>60); GLUCOSE,RANDOM 111 mg/dL (70-110); SODIUM SERUM 139 mmol/L (136-145); UREA NITROGEN, BLOOD 18 mg/dL (7-18)
[2024-12-27 10:35] LABS: CREATINE KINASE, TOTAL ONLY 34 U/L (39-308)
[2024-12-27 10:38] LABS: TROPONIN I-HIGH SENSITIVITY 12 ng/L (<76)
[2024-12-27 13:30] VITALS: BP 199/103; PULSE 91; RESP 18; TEMP 97.9; O2SAT 98
[2024-12-27] MEDS ORDERED: BISACODYL 10 MG RECTAL RECTAL SUPPOSITORY PR PRN (13:30)
[2024-12-27] MEDS: LOSARTAN POTASSIUM 25 MG TABLET PO ONE (14:07)
[2024-12-27] MEDS: ACETAMINOPHEN 325 MG TABLET PO PRN (14:10)
[2024-12-27 16:00] VITALS: BP 185/110; PULSE 85; RESP 18; TEMP 98; O2SAT 97
[2024-12-27] MEDS: HEPARIN SODIUM,PORCINE 5,000 UNITS/ML VIAL SQ SCH (16:21)
[2024-12-27 17:20] VITALS: BP 165/112; PULSE 75
[2024-12-27 20:00] VITALS: BP 120/77; PULSE 76; RESP 18; TEMP 98.2; O2SAT 97
[2024-12-27] MEDS: DOCUSATE SODIUM 100 MG CAPSULE PO SCH (21:00)
[2024-12-27] MEDS: ZOLPIDEM TARTRATE 5 MG TABLET PO PRN (23:20)
[2024-12-27] MEDS: ONDANSETRON HCL 4 MG/2 ML VIAL IVP PRN (23:20)
[2024-12-28] VITALS: BP 134/81; PULSE 74; RESP 17; TEMP 97.8; O2SAT 99
[2024-12-28 02:59] LABS: APPEARANCE,URINE CLEAR (CLEAR); GLUCOSE, URINE (UA) NEGATIVE (NEGATIVE); LEUKOCYTE ESTERASE ,URINE NEGATIVE (NEGATIVE); NITRATE,URINE NEGATIVE (NEGATIVE); OCCULT BLOOD,URINE NEGATIVE (NEGATIVE); SPECIFIC GRAVITIY, URINE 1.005 (1.003-1.030)
[2024-12-28 04:00] VITALS: BP 121/80; PULSE 77; RESP 17; TEMP 97.5; O2SAT 95
[2024-12-28 09:00] VITALS: BP 110/76; PULSE 68; RESP 18; TEMP 97.3; O2SAT 96
[2024-12-28] MEDS: LOSARTAN POTASSIUM 25 MG TABLET PO SCH (09:21)
[2024-12-28] MEDS: ATORVASTATIN CALCIUM 40 MG TABLET PO SCH (09:22)
[2024-12-28] MEDS: PANTOPRAZOLE SODIUM 40 MG DR TABLET PO SCH (09:22)
[2024-12-28] MEDS: SERTRALINE HCL 100 MG TABLET PO SCH (09:22)
[2024-12-28] MEDS: CLOPIDOGREL BISULFATE 75 MG TABLET PO SCH (09:23)
[2024-12-28] MEDS: ASPIRIN 81 MG CHEWABLE TABLET PO SCH (09:23)
[2024-12-28 12:34] VITALS: BP 114/57; PULSE 66; RESP 19; TEMP 98.3; O2SAT 95
[2024-12-28 16:12] VITALS: BP 117/74; PULSE 73; RESP 18; TEMP 98.1; O2SAT 97
[2024-12-28 20:18] VITALS: BP 132/73; PULSE 74; RESP 18; TEMP 98.2; O2SAT 98
[2024-12-29] VITALS (7 sets, daily range): BP systolic 135–182; BP diastolic 78–100; PULSE 63–76; RESP 18–20; TEMP 97.7–98.2; O2SAT 97–98
[2024-12-29] MEDS: FUROSEMIDE 20 MG TABLET PO SCH (08:51)
[2024-12-29] MEDS: MECLIZINE HCL 12.5 MG TABLET PO SCH (13:07)
[2024-12-29] MEDS: MAGNESIUM HYDROXIDE SUSPENSION 30 ML UDCUP PO PRN (21:10)
[2024-12-29] MEDS: MECLIZINE HCL 25 MG TABLET PO SCH (21:12)
[2024-12-29] MEDS: RINGERS SOLUTION,LACTATED 500 ML IV ONE (23:22)
[2024-12-30] VITALS (11 sets, daily range): BP systolic 117–166; BP diastolic 62–94; PULSE 62–89; RESP 18–20; TEMP 97.9–98.8; O2SAT 97–99
[2024-12-31] VITALS (7 sets, daily range): BP systolic 123–181; BP diastolic 67–101; PULSE 64–88; RESP 17–19; TEMP 97.7–98.3; O2SAT 95–100
[2024-12-31] MEDS ORDERED: MECL-302 PO (15:43)
[2024-12-31] MEDS ORDERED: HYDR10TA31 PO (22:18)
[2025-01-01 04:39] VITALS: BP 163/88; PULSE 70; RESP 18; TEMP 97.9; O2SAT 97
[2025-01-01 07:50] VITALS: BP 133/79; PULSE 68; RESP 18; TEMP 97.4; O2SAT 97
[2025-01-01 08:57] LABS: PLATELET COUNT (AUTO) 142 K/uL (150-450); RED BLOOD CELL COUNT(AUTO) 4.50 MIL/uL (4.50-5.90); RED CELL DISTRIBUTION WIDTH 13.2 % (11.5-14.5); WHITE BLOOD COUNT (AUTO) 3.8 K/uL (4.5-11.0)
[2025-01-01 09:05] LABS: CALCIUM, TOTAL 8.5 mg/dL (8.8-10.5); CREATININE 0.93 mg/dL (0.60-1.30); GLOMERULAR FILTR. RATE CALC > 60 mL/min (>60); GLUCOSE,RANDOM 149 mg/dL (70-110); SODIUM SERUM 138 mmol/L (136-145); UREA NITROGEN, BLOOD 19 mg/dL (7-18)
[2025-01-01 13:43] VITALS: BP 192/130; PULSE 90; RESP 19; TEMP 97.7; O2SAT 98
[2025-01-01 16:10] VITALS: BP 173/127; PULSE 83; RESP 19; TEMP 97.9; O2SAT 98
[2025-01-01 20:55] VITALS: BP 157/100; PULSE 80; RESP 20; TEMP 98.2; O2SAT 98
[2025-01-02 05:11] VITALS: BP 163/80; PULSE 71; RESP 18; TEMP 97.7; O2SAT 99
[2025-01-02 08:15] VITALS: BP 156/110; PULSE 86; RESP 17; TEMP 98.2; O2SAT 98
[2025-01-02] MEDS ORDERED: HYDR25TA PO (09:48)
[2025-01-02] MEDS: SENNOSIDES 8.6 MG TABLET PO ONE (15:27)
[2025-01-02 16:03] VITALS: BP 185/86; PULSE 78; RESP 18; TEMP 98.4; O2SAT 98
[2025-01-02 19:48] VITALS: BP 124/100; PULSE 85; RESP 18; TEMP 98.4; O2SAT 100
[2025-01-03 03:31] VITALS: BP 134/69; PULSE 65; RESP 18; TEMP 97.9; O2SAT 99
[2025-01-03 07:23] VITALS: BP 133/86; PULSE 67; RESP 18; TEMP 97.7; O2SAT 99
[2025-01-03] MEDS: POLYETHYLENE GLYCOL 3350 17 GM PACKET PO SCH (08:45)
[2025-01-03] MEDS ORDERED: AMLO2.5T96 PO (14:52)
== END 2025-01-03 16:30 | disposition home health service (06) | DRG 74 ==
LOC: EMS 09:47 → EDH 11:55 → 5S 13:20 → 4E 12-28 21:41
PROVIDERS: ADMIT Internal Medicine; ATTEND Internal Medicine
DX: G90.89 Other disorders of autonomic nervous system (principal); I95.1 Orthostatic hypotension; I16.0 Hypertensive urgency; N40.0 Benign prostatic hyperplasia without lower urinary tract symptoms; I50.9 Heart failure, unspecified; I48.91 Unspecified atrial fibrillation; I11.0 Hypertensive heart disease with heart failure; F03.90 Unspecified dementia, unspecified severity, without behavioral disturbance, psychotic disturbance, mood disturbance, and anxiety; Z87.09 Personal history of other diseases of the respiratory system; Z88.5 Allergy status to narcotic agent; Z79.899 Other long term (current) drug therapy
CPT/HCPCS: 71045; 80048; 81003; 82550; 83735; 83880; 84484; 85025; 85610; 85730; 93005; 96374; 97116; 97162; 99285; G0378; J0360; J1644; J2405; J7120; 36415-L1; 36415-TC

== ENCOUNTER 2025-01-07 03:22 | Emergency (ER) | payer MEDICARE, MEDICAID ==
[~2025-01-07] VITALS: Ht 190.5 cm; Wt 84.1 kg
[~2025-01-07 03:22] MED LIST changes: +AMLO2.5T96 PO; -CARV12 PO; -CLIN300C58 PO; -FURO20TA4 PO; +HYDR10TA31 PO; +HYDR25TA PO; -LOSA-417 PO; +MECL-302 PO; -SERT-440 PO
[2025-01-07 03:34] VITALS: PULSE 96
[2025-01-07] MEDS: KETOROLAC TROMETHAMINE 30 MG/ML VIAL IM ONE (03:52)
[2025-01-07 04:22] LABS: CALCIUM, TOTAL 8.9 mg/dL (8.8-10.5); CREATININE 0.96 mg/dL (0.60-1.30); GLOMERULAR FILTR. RATE CALC > 60 mL/min (>60); GLUCOSE,RANDOM 111 mg/dL (70-110); UREA NITROGEN, BLOOD 25 mg/dL (7-18)
[2025-01-07 04:28] LABS: PLATELET COUNT (AUTO) 178 K/uL (150-450); RED BLOOD CELL COUNT(AUTO) 4.78 MIL/uL (4.50-5.90); RED CELL DISTRIBUTION WIDTH 13.3 % (11.5-14.5); WHITE BLOOD COUNT (AUTO) 8.0 K/uL (4.5-11.0)
[2025-01-07 04:29] LABS: SODIUM SERUM 138 mmol/L (136-145)
[2025-01-07] MEDS: LIDOCAINE 2% 6 ML JELLY TP ONE (05:06)
[2025-01-07 05:09] VITALS: BP 177/106; RESP 24; TEMP 98.1; O2SAT 95
== END 2025-01-07 05:09 | disposition home or self-care (01) ==
LOC: EMS 03:25
DX: T83.091A Other mechanical complication of indwelling urethral catheter, initial encounter (principal); I11.0 Hypertensive heart disease with heart failure; F03.90 Unspecified dementia, unspecified severity, without behavioral disturbance, psychotic disturbance, mood disturbance, and anxiety; J45.909 Unspecified asthma, uncomplicated; Z79.02 Long term (current) use of antithrombotics/antiplatelets; Z79.82 Long term (current) use of aspirin; Z88.5 Allergy status to narcotic agent; Z46.6 Encounter for fitting and adjustment of urinary device; Z79.899 Other long term (current) drug therapy; Y73.8 Miscellaneous gastroenterology and urology devices associated with adverse incidents, not elsewhere classified
CPT/HCPCS: 99284; 80048; 85025; 36415; 51702; 96372; J1885

== ENCOUNTER 2025-01-07 17:53 | Emergency (ER) | payer MEDICARE, MEDICAID ==
[~2025-01-07] VITALS: Ht 190.5 cm; Wt 86.4 kg
[2025-01-07 18:13] VITALS: TEMP 98.6
[2025-01-07 20:00] VITALS: BP 162/76; PULSE 85; RESP 16; O2SAT 97
== END 2025-01-07 22:02 | disposition home or self-care (01) ==
LOC: EMS 17:54
DX: R33.9 Retention of urine, unspecified (principal); I11.0 Hypertensive heart disease with heart failure; F03.90 Unspecified dementia, unspecified severity, without behavioral disturbance, psychotic disturbance, mood disturbance, and anxiety; J45.909 Unspecified asthma, uncomplicated; Z98.890 Other specified postprocedural states; Z79.02 Long term (current) use of antithrombotics/antiplatelets; Z79.82 Long term (current) use of aspirin; Z79.899 Other long term (current) drug therapy; Z88.5 Allergy status to narcotic agent
CPT/HCPCS: 93005; 99283

== ENCOUNTER 2025-01-13 20:17 | Emergency (ER) | payer MEDICARE, MEDICAID ==
[~2025-01-13] VITALS: Ht 190.5 cm; Wt 86.4 kg
[2025-01-13 20:58] VITALS: TEMP 98.6
[2025-01-13 21:40] LABS: CALCIUM, TOTAL 8.9 mg/dL (8.8-10.5); CREATININE 1.00 mg/dL (0.60-1.30); GLOMERULAR FILTR. RATE CALC > 60 mL/min (>60); GLUCOSE,RANDOM 114 mg/dL (70-110); SODIUM SERUM 141 mmol/L (136-145); UREA NITROGEN, BLOOD 23 mg/dL (7-18)
[2025-01-13 21:43] LABS: PLATELET COUNT (AUTO) 171 K/uL (150-450); RED BLOOD CELL COUNT(AUTO) 4.75 MIL/uL (4.50-5.90); RED CELL DISTRIBUTION WIDTH 13.3 % (11.5-14.5); WHITE BLOOD COUNT (AUTO) 5.3 K/uL (4.5-11.0)
[2025-01-13 21:53] LABS: TROPONIN I-HIGH SENSITIVITY 50 ng/L (<76)
[2025-01-13 21:55] LABS: ASPARTATE AMINOTRANSFERASE 31.0 U/L (15-37); TOTAL PROTEIN, SERUM 7.2 g/dL (6.4-8.2)
[2025-01-14] MEDS: POTASSIUM CHLORIDE 20 MEQ ER TABLET PO ONE (00:52)
[2025-01-14 01:30] VITALS: BP 145/77; PULSE 71; RESP 19; O2SAT 97
== END 2025-01-14 02:00 | disposition home or self-care (01) ==
LOC: EMS 20:24
DX: E87.6 Hypokalemia (principal); F03.90 Unspecified dementia, unspecified severity, without behavioral disturbance, psychotic disturbance, mood disturbance, and anxiety; I11.0 Hypertensive heart disease with heart failure; I48.91 Unspecified atrial fibrillation; J45.909 Unspecified asthma, uncomplicated; N40.1 Benign prostatic hyperplasia with lower urinary tract symptoms; Z96.0 Presence of urogenital implants; Z79.02 Long term (current) use of antithrombotics/antiplatelets; Z79.82 Long term (current) use of aspirin; Z79.899 Other long term (current) drug therapy; Z88.5 Allergy status to narcotic agent
CPT/HCPCS: 71045; 80048; 80076; 83690; 83880; 84484; 85025; 93005; 99285; 36415-L1; 36415-TC

== ENCOUNTER 2025-02-28 15:44 | Emergency (ER) | payer MEDICARE, MEDICAID ==
[~2025-02-28] VITALS: Ht 190.5 cm; Wt 81.0 kg
[~2025-02-28 15:44] MED LIST changes: +CIPR250T6 PO; -CLOP75TA83 PO; -HYDR10TA31 PO
[2025-02-28 16:34] VITALS: TEMP 98.6
[2025-02-28 17:20] LABS: APPEARANCE,URINE CLEAR (CLEAR); GLUCOSE, URINE (UA) NEGATIVE (NEGATIVE); LEUKOCYTE ESTERASE ,URINE SMALL (NEGATIVE); NITRATE,URINE POSITIVE (NEGATIVE); OCCULT BLOOD,URINE NEGATIVE (NEGATIVE); SPECIFIC GRAVITIY, URINE 1.025 (1.003-1.030)
[2025-02-28 17:35] LABS: PLATELET COUNT (AUTO) 143 K/uL (150-450); RED BLOOD CELL COUNT(AUTO) 4.74 MIL/uL (4.50-5.90); RED CELL DISTRIBUTION WIDTH 14.4 % (11.5-14.5); WHITE BLOOD COUNT (AUTO) 5.4 K/uL (4.5-11.0)
[2025-02-28 17:39] LABS: CALCIUM, TOTAL 9.3 mg/dL (8.8-10.5); CREATININE 1.02 mg/dL (0.60-1.30); GLOMERULAR FILTR. RATE CALC > 60 mL/min (>60); GLUCOSE,RANDOM 113 mg/dL (70-110); SODIUM SERUM 142 mmol/L (136-145); UREA NITROGEN, BLOOD 26 mg/dL (7-18)
[2025-02-28 18:09] LABS: SQUAMOUS EPITHELIAL CELL,UR Few /LPF (None Seen); SULFOSALICYLIC ACID,URINE 1+ (Negative)
[2025-02-28] MEDS: CEPHALEXIN MONOHYDRATE 500 MG CAPSULE PO ONE (18:55)
[2025-02-28] MEDS ORDERED: AMLO2.5T96 PO (19:25)
[2025-02-28] MEDS ORDERED: CEPH-558 PO (19:25)
[2025-02-28] MEDS ORDERED: HYDR25TA PO (19:25)
[2025-02-28 19:59] VITALS: BP 156/90; PULSE 78; RESP 18; O2SAT 98
== END 2025-02-28 20:01 | disposition home or self-care (01) ==
LOC: EMS 16:04
DX: N39.0 Urinary tract infection, site not specified (principal); I11.0 Hypertensive heart disease with heart failure; F03.90 Unspecified dementia, unspecified severity, without behavioral disturbance, psychotic disturbance, mood disturbance, and anxiety; I48.91 Unspecified atrial fibrillation; J45.909 Unspecified asthma, uncomplicated; Z88.5 Allergy status to narcotic agent; Z79.82 Long term (current) use of aspirin; Z79.899 Other long term (current) drug therapy
CPT/HCPCS: 80048; 81001; 81002; 85025; 87086; 99283